=== PATIENT | male | born 1940 | race Caucasian/White ===

== ENCOUNTER 2018-04-09 17:45 | Inpatient (IN) | payer MEDICARE ==
[2018-04-09] MEDS ORDERED: SODIUM CHLORIDE 0.9% 1,000 ML IV STA (17:52)
--- NOTE | 2018-04-09 19:46 | ED ---
Altered Mental Status HPI - General Chief Complaint: Altered Mental Status Stated Complaint: Weakness, altered mental status Time Seen by Provider: 04/09/18 17:52 Source: patient, RN/MD, EMS, RN notes reviewed Mode of arrival: EMS Limitations: altered mental status - History of Present Illness Initial Comments: This is a 76-year-old male was transferred here from [facility] for further evaluation. He was brought by EMS to that facility earlier today after being found sitting in a chair over his left previous stay by a neighbor. Prior to that he been found on the floor and helped out of the chair. He was incontinent of urine. He was brought into the emergency department at [facility] found have atrial fibrillation with a rapid ventricular response dehydration evidence of pneumonia with elevated lactic acid. Also rhabdomyolysis some mild troponin elevation. Patient himself complains no chest pain is this time he has had a slight cough. He was brought in by EMS was given IV fluids. He does appear to be more responsive. MD Complaint: altered mental status, other - Related Data Home Medications Medication Instructions Recorded Confirmed Atorvastatin [Lipitor] 40 mg PO DAILY 02/06/17 04/09/18 metFORMIN HCL [Glucophage] 500 mg PO BID 02/06/17 02/06/17 Allergies Allergy/AdvReac Type Severity Reaction Status Date / Time No Known Allergies Allergy Verified 04/09/18 17:57 Review of Systems ROS Statement: Those systems with pertinent positive or pertinent negative responses have been documented in the HPI. ROS Other: All systems not noted in ROS Statement are negative. Past Medical History Past Medical History: Diabetes Mellitus, Hypertension History of Any Multi-Drug Resistant Organisms: None Reported Past Surgical History: No Surgical Hx Reported Past Psychological History: No Psychological Hx Reported Smoking Status: Never smoker Past Alcohol Use History: None Reported Past Drug Use History: None Reported General Exam - General Exam Comments Initial Comments: Is a well-developed well-nourished awake alert though somewhat mildly confused male Limitations: altered mental status General appearance: alert Head exam: Present: atraumatic, normocephalic, normal inspection Eye exam: Present: normal appearance, PERRL, EOMI. Absent: scleral icterus, conjunctival injection, periorbital swelling ENT exam: Present: mucous membranes dry Neck exam: Present: normal inspection. Absent: tenderness, meningismus, lymphadenopathy Respiratory exam: Present: normal lung sounds bilaterally. Absent: respiratory distress, wheezes, rales, rhonchi, stridor Cardiovascular Exam: Present: regular rate, normal rhythm, normal heart sounds. Absent: systolic murmur, diastolic murmur, rubs, gallop, clicks GI/Abdominal exam: Present: soft, normal bowel sounds. Absent: distended, tenderness, guarding, rebound, rigid Extremities exam: Present: normal inspection, full ROM, normal capillary refill. Absent: tenderness, pedal edema, joint swelling, calf tenderness Back exam: Present: normal inspection Neurological exam: Present: alert, altered, CN II-XII intact. Absent: motor sensory deficit Psychiatric exam: Present: anxious Skin exam: Present: warm, dry, intact, normal color. Absent: rash Course Vital Signs 04/09/18 04/09/18 04/09/18 17:52 18:00 18:30 Temperature 100.6 F H Pulse Rate 118 H 122 H 110 H Respiratory 20 18 19 Rate Blood Pressure 92/58 92/58 88/56 O2 Sat by Pulse 95 96 95 Oximetry Medical Decision Making - Medical Decision Making Patient will be admitted for inpatient treatment of multiple issues including pneumonia dehydration rhabdomyolysis fever rapid atrial fibrillation renal insufficiency. I did discuss the case with Dr. Perez - Radiology Data Radiology results: report reviewed (I did review the imaging and report evidence of a infiltrate as noted), image reviewed Disposition Clinical Impression: Pneumonia, Delirium due to general medical condition, Renal insufficiency, Febrile illness, acute, Rapid atrial fibrillation, Rhabdomyolysis, Lactic acidosis Disposition: ADMITTED IP TO THIS HOSP Condition: Serious Referrals: [facility],Clinic [Primary Care Provider] - 1-2 days
[2018-04-09] MEDS ORDERED: PNEUMONIA PROTOCOL UTILIZED 1 EACH MISC PO PRN (19:48)
[2018-04-09] MEDS ORDERED: IPRATROPIUM-ALBUTEROL 3 ML NEB INHALATION SCH (20:00)
[2018-04-09] MEDS: SODIUM CHLORIDE 0.9% 1,000 ML IV SCH (20:22)
[2018-04-09] MEDS ORDERED: IPRATROPIUM-ALBUTEROL 3 ML NEB INHALATION PRN (20:50)
[2018-04-09] MEDS ORDERED: LEVOFLOXACIN 750 MG TAB PO SCH (21:00)
[2018-04-09 21:01] LABS: Glucose,Whole Blood 154 mg/dL (75-99)
[2018-04-09] MEDS ORDERED: LORazepam 2 MG/ML INJ IV PRN ×4 (23:21)
[2018-04-09] MEDS ORDERED: THIAMINE 100 MG/ML 2 ML VIAL IM STA (23:21)
[2018-04-09] MEDS ORDERED: HYDROmorphone 0.5 MG/0.5 ML SYRINGE IVP PRN (23:23)
[2018-04-09] MEDS: THIAMINE 100 MG TAB PO SCH (23:27)
[2018-04-09] MEDS: INSULIN ASPART 100 UNIT/ML 1 ML 10 ML VIAL SQ SCH (23:35)
--- NOTE | 2018-04-09 23:37 | HP ---
HISTORY AND PHYSICAL DATE OF SERVICE: 04/09/2018 CHIEF COMPLAINT: Change in mental status, pneumonia. HISTORY OF PRESENT ILLNESS: This 77-year-old gentleman with a past history of multiple medical problems including diabetes and hypertension, being followed by Dr. Carmona in the [facility], presented to [facility] in a confused situation. The patient's neighbor found him on the floor in urine and the patient had shortness of breath and cough also. The patient was found to have atrial fibrillation with fast ventricular rate at [facility] with pneumonia as well as elevated lactic acid also as well as rhabdomyolysis. Currently the patient is admitted for further evaluation. The patient is confused, unable to give coherent history. Most of the information was taken from my discussion with staff and review of the chart at this time. PAST MEDICAL HISTORY: History of diabetes mellitus and hypertension. MEDICATIONS: Home medications list shows Lipitor 40 mg daily. ALLERGIES: None. FAMILY HISTORY, SOCIAL HISTORY, REVIEW OF SYSTEMS: Could not be taken because of the patient's confusion. PHYSICAL EXAM: Pulse is 102, blood pressure 106/65, respirations 17, temperature 98.2, pulse ox 94% on room air. HEENT: Conjunctivae normal. NECK: No JVD. CARDIOVASCULAR: S1 and S2 normal. LUNGS: Breath sounds diminished in the bases. Few scattered rhonchi and crackles. ABDOMEN: Soft. No mass. LEGS: No edema, no cyanosis. NERVOUS SYSTEM: Higher functions as mentioned. Moves all limbs equally. LYMPHATICS: No lymph nodes palpable in the neck, axillae or groin. SKIN: No rash. JOINTS: No active deformity or arthropathy. LABS: At this time reviewed. Glucose 154. ASSESSMENT: 1. Change in mental status, possible acute pneumonia with sepsis. 2. Metabolic encephalopathy secondary to sepsis. 3. Atrial fibrillation with fast ventricular rate, present on admission. 4. Elevated lactic acid. 5. Elevated troponin. 6. History of diabetes type 2. 7. Hypertension. RECOMMENDATIONS AND DISCUSSION: In this 77-year-old gentleman who presented with multiple complex medical problems, we will monitor the patient closely, continue the current management and symptomatic treatment. Initiate broad-spectrum IV antibiotics. Will consult Dr. Santizo. Bronchodilators, empiric antibiotics. Guarded prognosis because of multiple complex medical problems. MMODL / IJN: [id number] /
[2018-04-09 23:56] LABS: Basophils # (A) 0.1 k/uL (0-0.2); Basophils % (A) 1 %; Eosinophils # (A) 0.1 k/uL (0-0.7); Eosinophils % (A) 1 %; Lymphocytes # (A) 0.7 k/uL (1.0-4.8); Lymphocytes % (A) 8 %; MCH 29.4 pg (25.0-35.0); MCHC 30.9 g/dL (31.0-37.0); MCV 95.4 fL (80.0-100.0); Mean Platelet Volume 7.6; Monocytes # (A) 0.7 k/uL (0-1.0); Monocytes % (A) 7 %; Neutrophils # (A) 7.4 k/uL (1.3-7.7); Neutrophils % (A) 81 %; Platelet Count 190 k/uL (150-450); RBC 4.41 m/uL (4.30-5.90); RDW 14.3 % (11.5-15.5); WBC 9.1 k/uL (3.8-10.6)
[2018-04-09 23:58] LABS: INR 1.1 (<1.2); Prothrombin Time 11.9 sec (9.0-12.0)
[2018-04-10 00:01] LABS: Appearance,Urine Clear (Clear); Bilirubin,Urine Negative (Negative); Blood,Urine Moderate (Negative); Color,Urine Yellow; Glucose,Urine (UA) Trace (Negative); Ketones,Urine Negative (Negative); Leukocyte Esterase,Urine Negative (Negative); Mucus,Urine Rare /hpf; Nitrite,Urine Negative (Negative); PH, Urine 5.5 (5.0-8.0); Protein,Urine 1+ (Negative); RBC,Urine 89 /hpf (0-5); Specific Gravity,Urine 1.018 (1.001-1.035); Urobilinogen,Urine <2.0 mg/dL (<2.0); WBC,Urine 8 /hpf (0-5)
[2018-04-10 00:22] LABS: Amphetamine Screen,Urine Not Detected (NotDetected); Barbiturate Screen,Urine Not Detected (NotDetected); Benzodiazepines Screen,Urine Not Detected (NotDetected); Cocaine Screen,Urine Not Detected (NotDetected); Methadone Screen, Urine Not Detected (NotDetected); Opiate Screen,Urine Not Detected (NotDetected); Oxycodone Screen, Urine Not Detected (NotDetected); Phencyclidine Screen,Urine Not Detected (NotDetected); Tricyclic Antidepressant,Urine Not Detected (NotDetected); Urn Cannabinoid Scrn Not Detected (NotDetected)
--- NOTE | 2018-04-10 00:34 | XR ---
EXAMINATION TYPE: XR chest 1V portable DATE OF EXAM: 04/10/2018 COMPARISON: 04/09/2018 HISTORY: Pneumonia TECHNIQUE: Single frontal view of the chest is obtained. FINDINGS: There are mild infiltrates in the lower lung aguilar. There is no heart failure. Heart size is normal. There is no pleural effusion. IMPRESSION: Left lower lobe pneumonia unchanged compared to yesterday. There is new right lower lobe pneumonia.
--- NOTE | 2018-04-10 00:42 | CT ---
EXAMINATION TYPE: CT brain wo con DATE OF EXAM: 04/10/2018 COMPARISON: Yesterday HISTORY: AMS CT DLP: 1176.4 mGycm Automated exposure control for dose reduction was used. FINDINGS: There is cerebral cortical atrophy. There is no mass effect nor midline shift. There is no sign of in tracranial hemorrhage. The calvarium is intact. There is no evidence of a fracture. There is prominen ce of the ventricles. IMPRESSION: CEREBRAL ATROPHY AND HYDROCEPHALUS. NO ACUTE INTRACRANIAL ABNORMALITY. NO CHANGE COMPARED TO YESTERDA Y.
[2018-04-10 00:43] LABS: ALT 19 U/L (21-72); AST 42 U/L (17-59); Albumin 3.1 g/dL (3.5-5.0); Alcohol <10 mg/dL; Alkaline Phosphatase 75 U/L (38-126); Anion Gap 11 mmol/L; Blood Urea Nitrogen 35 mg/dL (9-20); Calcium 8.4 mg/dL (8.4-10.2); Carbon Dioxide 18 mmol/L (22-30); Chloride 110 mmol/L (98-107); Glucose 109 mg/dL (74-99); Potassium 4.3 mmol/L (3.5-5.1); Sodium 139 mmol/L (137-145); Total Bilirubin 1.1 mg/dL (0.2-1.3); Total Protein 6.1 g/dL (6.3-8.2)
[2018-04-10] MEDS: ACETAMINOPHEN TAB 325 MG TAB PO PRN (03:24)
[2018-04-10] MEDS: SODIUM CHLORIDE 0.9% 1,000 ML IV SCH ×4 (05:51→23:00)
[2018-04-10 06:23] LABS: Glucose,Whole Blood 109 mg/dL (75-99)
[2018-04-10] MEDS: INSULIN ASPART 100 UNIT/ML 1 ML 10 ML VIAL SQ SCH ×4 (06:27→21:03)
[2018-04-10] MEDS: PANTOPRAZOLE 40 MG TABLET PO SCH (06:28)
[2018-04-10] MEDS: metFORMIN 500 MG TAB PO SCH ×2 (06:28→16:43)
[2018-04-10 07:32] LABS: Basophils % (A) 0 %; Eosinophils % (A) 1 %; HCT 37.3 % (39.0-53.0); Lymphocytes # (A) 0.7 k/uL (1.0-4.8); Lymphocytes % (A) 9 %; MCH 29.8 pg (25.0-35.0); MCHC 32.1 g/dL (31.0-37.0); Monocytes # (A) 0.5 k/uL (0-1.0); Monocytes % (A) 7 %; Neutrophils # (A) 6.3 k/uL (1.3-7.7); Neutrophils % (A) 82 %; Platelet Count 198 k/uL (150-450); RBC 4.01 m/uL (4.30-5.90); RDW 14.3 % (11.5-15.5); WBC 7.7 k/uL (3.8-10.6)
[2018-04-10 08:01] LABS: Albumin 2.5 g/dL (3.5-5.0); Potassium 3.8 mmol/L (3.5-5.1); Total Bilirubin 0.8 mg/dL (0.2-1.3)
[2018-04-10] MEDS: SYMBICORT 160-4.5 MCG INHALER INHALATION SCH ×2 (08:34→19:17)
[2018-04-10] MEDS: IPRATROPIUM-ALBUTEROL 3 ML NEB INHALATION SCH ×3 (08:34→19:16)
[2018-04-10] MEDS ORDERED: HEPARIN SODIUM,PORCINE 5,000 UNIT/ML 1 ML VIAL SQ SCH (09:00)
[2018-04-10] MEDS ORDERED: ATORVASTATIN 40 MG TAB PO SCH (09:00)
[2018-04-10] MEDS: MULTIVITAMINS, THERA 1 EACH TAB PO SCH (09:52)
[2018-04-10] MEDS: THIAMINE 100 MG TAB PO SCH ×2 (09:52→16:43)
[2018-04-10] MEDS: NICOTINE 14MG/24HR PATCH TRANSDERM SCH (09:52)
[2018-04-10 10:54] LABS: Glucose,Whole Blood 129 mg/dL (75-99)
--- NOTE | 2018-04-10 13:05 | P.CNPUL ---
History of Present Illness Consult date: 04/10/18 Requesting physician: Pantera Perez Reason for consult: abnormal CXR/CT (Bibasilar pneumonia) Chief complaint: Altered mental status History of present illness: This is a pleasant 77-year-old gentleman who follows with the [facility] for his primary care needs. He has a history of diabetes mellitus and hyperlipidemia. He was brought here to the emergency room from [facility] after being evaluated for altered mental status and being found on the floor incontinent of urine by a neighbor. Workup there revealed atrial fibrillation with a rapid ventricular response, dehydration, basilar pneumonia, rhabdomyolysis and mild troponin elevation. Here in the emergency room asked x-ray did reveal bibasilar infiltrates. Computed tomography scan of the brain revealed cerebral atrophy and hydrocephalus but no acute intracranial abnormalities. Results revealed a white count of 9.1. Hemoglobin 13.0. Bicarb 18. Creatinine 1.55. Troponin 0.064, 0.085. Serum alcohol less than 10. Urine drug screen negative. Influenza screen negative. Urinalysis with moderate blood and WBCs. He is seen today in consultation on the selective care unit. He is currently awake and alert in no acute distress. He is somewhat confused as to why he was transferred here. He denies any chest pain currently. He denies any worsening shortness of breath. He does have a loose nonproductive cough. He is maintaining good O2 saturations in the mid 90s on room air. He's been afebrile. Hemodynamically stable. Follow-up labs reveal a WBC of 7.7. Hemoglobin 12.0. Creatinine 1.47. CK 409. Review of Systems Constitutional: Reports fatigue, Reports poor appetite, Reports weakness Eyes: denies blurred vision, denies decreased vision Ears: bilateral: decreased hearing Ears, nose, mouth and throat: Denies headache, Denies sore throat Cardiovascular: Reports dyspnea on exertion Respiratory: Reports congestion, Reports cough, Reports dyspnea Gastrointestinal: Denies abdominal pain, Denies diarrhea, Denies nausea, Denies vomiting Genitourinary: Reports as per HPI Musculoskeletal: Denies myalgias Integumentary: Reports depigmentation Neurological: Reports change in mentation Psychiatric: Reports anxiety Endocrine: Denies fatigue, Denies weight change Hematologic/Lymphatic: Reports as per HPI Allergic/Immunologic: Reports as per HPI Past Medical History Past Medical History: Diabetes Mellitus, Hypertension History of Any Multi-Drug Resistant Organisms: None Reported Past Surgical History: No Surgical Hx Reported Past Psychological History: No Psychological Hx Reported Smoking Status: Never smoker Past Alcohol Use History: None Reported Past Drug Use History: None Reported - Past Family History Father Family Medical History: Musculoskeletal Disorder Additional Family Medical History / Comment(s): MS Medications and Allergies Home Medications Medication Instructions Recorded Confirmed Type Atorvastatin [Lipitor] 40 mg PO DAILY 02/06/17 04/09/18 History Allergies Allergy/AdvReac Type Severity Reaction Status Date / Time No Known Allergies Allergy Verified 04/09/18 21:36 Physical Exam Vitals: Vital Signs Temp Pulse Pulse Resp BP BP Pulse Ox 04/10/18 12:29 82 04/10/18 12:13 82 04/10/18 12:00 98.4 F 90 17 116/58 95 04/10/18 08:45 86 04/10/18 08:37 88 04/10/18 08:00 98.8 F 62 19 99/42 95 04/10/18 04:00 102 F H 76 19 117/54 92 L 04/10/18 00:30 94 L 04/10/18 00:00 98 F 101 H 18 128/66 94 L 04/09/18 20:30 99.0 F 109/66 04/09/18 20:09 98.8 F 61 18 128/66 94 L 04/09/18 20:00 102 H 17 106/55 98 04/09/18 19:30 121 H 15 106/60 04/09/18 19:00 115 H 20 92/63 96 04/09/18 18:30 110 H 19 88/56 95 04/09/18 18:00 122 H 18 92/58 96 04/09/18 17:52 100.6 F H 118 H 20 92/58 95 Intake and Output 04/09/18 04/10/18 04/10/18 22:59 06:59 14:59 Intake Total 120 Output Total 450 800 600 Balance -450 -800 -480 Intake: IV 20 Invasive Line 3 20 Oral 100 Output: Urine 450 800 600 Uretheral (Patrick) 400 Other: Voiding Method Indwelling Catheter Weight 84.822 kg 82.5 kg - Constitutional General appearance: average body habitus, disheveled, no acute distress - EENT Eyes: EOMI, PERRLA ENT: hard of hearing Ears: bilateral: normal - Neck Neck: normal ROM Carotids: bilateral: upstroke normal Thyroid: bilateral: normal size - Respiratory Respiratory: bilateral: diminished, rhonchi - Cardiovascular Rhythm: irregularly irregular Heart sounds: normal: S1, S2 - Gastrointestinal General gastrointestinal: normal bowel sounds - Integumentary Integumentary: normal turgor - Neurologic Neurologic: CNII-XII intact - Musculoskeletal Musculoskeletal: generalized weakness - Psychiatric Psychiatric: A&O x's 3, appropriate affect, intact judgment & insight Results - Laboratory Findings CBC and BMP: 04/10/18 06:42 04/10/18 06:42 PT/INR, D-dimer PT 11.9 sec (9.0-12.0) 04/09/18 23:30 INR 1.1 (<1.2) 04/09/18 23:30 Abnormal lab findings: Abnormal Labs 04/09/18 04/09/18 04/09/18 21:00 23:22 23:22 RBC Hgb Hct MCHC 30.9 L Lymphocytes # 0.7 L Chloride 110 H Carbon Dioxide 18 L BUN 35 H Creatinine 1.55 H Glucose 109 H POC Glucose (mg/dL) 154 H Calcium ALT 19 L Creatine Kinase Troponin I Total Protein 6.1 L Albumin 3.1 L Urine Protein Urine Glucose (UA) Urine Blood Urine RBC Urine WBC Urine Mucus 04/09/18 04/09/18 04/10/18 23:22 23:34 06:21 RBC Hgb Hct MCHC Lymphocytes # Chloride Carbon Dioxide BUN Creatinine Glucose POC Glucose (mg/dL) 109 H Calcium ALT Creatine Kinase Troponin I 0.064 H* Total Protein Albumin Urine Protein 1+ H Urine Glucose (UA) Trace H Urine Blood Moderate H Urine RBC 89 H Urine WBC 8 H Urine Mucus Rare H 04/10/18 04/10/18 04/10/18 06:41 06:42 06:42 RBC 4.01 L Hgb 12.0 L Hct 37.3 L MCHC Lymphocytes # 0.7 L Chloride 111 H Carbon Dioxide 21 L BUN 29 H Creatinine 1.47 H Glucose 108 H POC Glucose (mg/dL) Calcium 8.0 L ALT Creatine Kinase 409 H Troponin I 0.085 H* Total Protein 5.0 L Albumin 2.5 L Urine Protein Urine Glucose (UA) Urine Blood Urine RBC Urine WBC Urine Mucus 04/10/18 10:53 RBC Hgb Hct MCHC Lymphocytes # Chloride Carbon Dioxide BUN Creatinine Glucose POC Glucose (mg/dL) 129 H Calcium ALT Creatine Kinase Troponin I Total Protein Albumin Urine Protein Urine Glucose (UA) Urine Blood Urine RBC Urine WBC Urine Mucus - Diagnostic Findings Chest x-ray: image reviewed Assessment and Plan Assessment: Impression: #1 Altered mental status of unclear etiology found on floor by neighbors incontinent of urine and possible metabolic encephalopathy. #2 Atrial fibrillation with a rapid ventricular response. #3 Bibasilar pneumonia, suspect aspiration. #4 Febrile illness secondary to above. #5 Urinary tract infection, culture pending. #6 Diabetes mellitus. #7 Hyperlipidemia. #8 Rhabdomyolysis. #9 Elevated troponins. #10 Acute renal failure Plan: The patient was seen and evaluated by Dr. Santioz. Chest x-ray and labs were reviewed. He is currently on ceftriaxone. We'll add azithromycin. Initiated on DuoNeb inhalations, Symbicort. We will try to obtain more information as the patient is a poor historian. We'll continue to follow and make further recommendations based on his clinical status. I, the cosigning physician, performed a history & physical examination of the patient. Lungs sounds bilateral scattered rhonchi. Maintaining good O2 saturations in the 90s on room air. I discussed the assessment and plan of care with my nurse practitioner, Jazz Phoenix. I attest to the above note as dictated by her. Time with Patient: Greater than 30
[2018-04-10] MEDS ORDERED: AZITHROMYCIN 500 MG TAB PO SCH (13:15)
[2018-04-10] MEDS ORDERED: LEVOFLOXACIN 750 MG TAB PO SCH (15:00)
[2018-04-10] MEDS ORDERED: MINERAL OIL-WHITE PETROLATUM 120 GM JAR TOPICAL PRN (16:14)
[2018-04-10] MEDS ORDERED: HEPARIN SODIUM,PORCINE 5,000 UNIT/ML 1 ML VIAL IV ONE (16:16)
[2018-04-10] MEDS ORDERED: HEPARIN SODIUM,PORCINE 5,000 UNIT/ML 1 ML VIAL IV PRN (16:16)
[2018-04-10] MEDS ORDERED: HEPARIN SOD,PORK IN 0.45% NACL 25,000 UNIT in 0.45% NACL 1 250ML.BAG IV SCH (16:30)
[2018-04-10 16:50] LABS: Glucose,Whole Blood 80 mg/dL (75-99)
[2018-04-10 16:53] LABS: Basophils % (A) 0 %; Eosinophils # (A) 0.1 k/uL (0-0.7); Eosinophils % (A) 1 %; HCT 40.2 % (39.0-53.0); HGB 12.7 gm/dL (13.0-17.5); Lymphocytes # (A) 0.7 k/uL (1.0-4.8); Lymphocytes % (A) 10 %; MCH 29.8 pg (25.0-35.0); MCHC 31.7 g/dL (31.0-37.0); MCV 94.1 fL (80.0-100.0); Mean Platelet Volume 8.1; Monocytes # (A) 0.5 k/uL (0-1.0); Monocytes % (A) 7 %; Neutrophils # (A) 5.5 k/uL (1.3-7.7); Neutrophils % (A) 79 %; Platelet Count 170 k/uL (150-450); RBC 4.28 m/uL (4.30-5.90); RDW 14.3 % (11.5-15.5); WBC 6.9 k/uL (3.8-10.6)
[2018-04-10 17:01] LABS: Partial Thromboplastin Time 25.6 sec (22.0-30.0); Prothrombin Time 10.7 sec (9.0-12.0)
--- NOTE | 2018-04-10 17:47 | PN ---
PROGRESS NOTE DATE OF SERVICE: 04/10/2018 This 77-year-old gentleman who was admitted with change in mental status, possible bibasilar pneumonia also had significant dry skin also. The patient being closely monitored. Patient has significant dementia. The CT scan of the brain shows significant shrinkage of the brain with some increased ventricular fluid also. The patient is being closely monitored at this time. The patient apparently lives by himself and the nearest nieces is in [place] with whom the staff is in contact. The patient also had a atrial fibrillation with fast ventricular rate. New onset atrial fibrillation, and the patient being closely monitored. Patient is closely monitored at this time. PAST MEDICAL HISTORY: Reviewed. REVIEW OF SYSTEMS: CARDIOVASCULAR SYSTEM: No angina or palpitations. Respiration: As mentioned earlier. GI as mentioned earlier. no dysuria. Central nervous system: No numbness or weakness. CURRENT MEDICATIONS: Reviewed include: 1. Tylenol 650 q.4h. 2. DuoNeb q.i.d. and p.r.n. 3. Zithromax 500 mg daily. 4. Symbicort 160/4.5 two puffs b.i.d. 5. Rocephin 1 g daily. 6. Heparin. 7. Dilaudid. 8. NovoLog. 9. Ativan. 10.Glucophage. 11.Multivitamins. 12.Habitrol 14 daily. 13.Protonix. PHYSICAL EXAM: Patient is alert, oriented x2. Pulse is 98, blood pressure 116/50, respirations 17, temperature 98.4, pulse ox 94% on room air. HEENT: Conjunctivae normal. NECK: No jugular venous distention. No carotid bruit. CARDIOVASCULAR: S1, S2 muffled. Respiratory: Breath sounds diminished in the bases. A few scattered rhonchi and crackles. ABDOMEN: Soft, nontender. Legs no edema. Nervous system: Diffusely weak. Skin: Significant diffuse dry skin. The patient is picking also. LABS: WBC 7.2, hemoglobin is 12, sodium 139 and creatinine is 1.47. Troponin 0.085. ASSESSMENT: 1. Change in mental status, possible acute bibasilar pneumonia possibly gram-negative and sepsis present on admission. 2. Change in mental status, metabolic encephalopathy, acute. 3. History of dementia. 4. Atrial fibrillation with fast ventricular rate present on admission. 5. Elevated lactic acid. 6. Elevated pro troponin around 0.085, indeterminate. 7. Diabetes mellitus type 2. 8. Hypertension. 9. NO CODE, NO CPR, NO VENT. 10.Chronic kidney stage 3. 11.Gait dysfunction. 12.Extensive dry skin of the lower extremities. RECOMMENDATIONS AND DISCUSSION: In this 77-year-old gentleman who presented with multiple complex medical issues, we will monitor the patient closely, continue the current medications, continue broad- spectrum IV antibiotics. Continue bronchodilators. Closely follow with Pulmonary. I would also recommend Cardiology evaluation. A 2D echo with Doppler. Otherwise diet may be advanced if tolerated and continue to monitor. Bronchodilators. Prognosis guarded. Further recommendations to follow. See orders for details. Local treatment for the dry skin. The patient was found alone by the EMS. Also recommend PT/OT evaluation. Production Planning Supervisor for possible ECF rehab also. Further recommendations to follow. CELINA / TRACY: [id number] /
[2018-04-10] MEDS: AZITHROMYCIN 500 MG in SODIUM CHLORIDE 0.9% 250 ML IVPB SCH (18:44)
[2018-04-10 20:48] LABS: Glucose,Whole Blood 99 mg/dL (75-99)
[2018-04-11 05:43] LABS: Basophils % (A) 0 %; Eosinophils # (A) 0.1 k/uL (0-0.7); Eosinophils % (A) 2 %; HGB 11.9 gm/dL (13.0-17.5); Lymphocytes # (A) 0.8 k/uL (1.0-4.8); Lymphocytes % (A) 14 %; MCH 29.5 pg (25.0-35.0); MCHC 31.2 g/dL (31.0-37.0); MCV 94.6 fL (80.0-100.0); Mean Platelet Volume 7.8; Monocytes # (A) 0.4 k/uL (0-1.0); Monocytes % (A) 7 %; Neutrophils # (A) 4.3 k/uL (1.3-7.7); Neutrophils % (A) 74 %; Platelet Count 183 k/uL (150-450); RBC 4.02 m/uL (4.30-5.90); RDW 14.4 % (11.5-15.5); WBC 5.8 k/uL (3.8-10.6)
[2018-04-11 05:52] LABS: Albumin 2.3 g/dL (3.5-5.0); Potassium 3.8 mmol/L (3.5-5.1); Total Bilirubin 0.5 mg/dL (0.2-1.3); Total Protein 4.8 g/dL (6.3-8.2)
[2018-04-11] MEDS: SODIUM CHLORIDE 0.9% 1,000 ML IV SCH ×3 (06:00→19:47)
[2018-04-11 06:05] LABS: Glucose,Whole Blood 86 mg/dL (75-99)
[2018-04-11] MEDS: INSULIN ASPART 100 UNIT/ML 1 ML 10 ML VIAL SQ SCH ×4 (06:05→20:40)
[2018-04-11] MEDS: metFORMIN 500 MG TAB PO SCH ×2 (06:17→19:45)
[2018-04-11] MEDS: PANTOPRAZOLE 40 MG TABLET PO SCH (06:17)
[2018-04-11] MEDS: SILVER sulfADIAZINE Cream 400 GM 1 APPLIC APPLIC TOPICAL SCH (07:49)
[2018-04-11] MEDS: IPRATROPIUM-ALBUTEROL 3 ML NEB INHALATION SCH ×3 (08:04→20:32)
[2018-04-11] MEDS: SYMBICORT 160-4.5 MCG INHALER INHALATION SCH ×2 (08:04→20:32)
[2018-04-11] MEDS: NICOTINE 14MG/24HR PATCH TRANSDERM SCH (10:41)
[2018-04-11] MEDS: THIAMINE 100 MG TAB PO SCH ×2 (10:41→19:45)
[2018-04-11] MEDS: AZITHROMYCIN 500 MG in SODIUM CHLORIDE 0.9% 250 ML IVPB SCH (10:41)
[2018-04-11] MEDS: MULTIVITAMINS, THERA 1 EACH TAB PO SCH (10:41)
[2018-04-11 10:51] LABS: Glucose,Whole Blood 82 mg/dL (75-99)
--- NOTE | 2018-04-11 16:01 | P.PN ---
Subjective Progress Note Date: 04/11/18 Principal diagnosis: Altered mental status, metabolic encephalopathy, atrial fibrillation with RVR, aspiration pneumonia. This is a pleasant 77-year-old gentleman who follows with the [facility] for his primary care needs. He has a history of diabetes mellitus and hyperlipidemia. He was brought here to the emergency room from [facility] after being evaluated for altered mental status and being found on the floor incontinent of urine by a neighbor. Workup there revealed atrial fibrillation with a rapid ventricular response, dehydration, basilar pneumonia, rhabdomyolysis and mild troponin elevation. Here in the emergency room asked x-ray did reveal bibasilar infiltrates. Computed tomography scan of the brain revealed cerebral atrophy and hydrocephalus but no acute intracranial abnormalities. Results revealed a white count of 9.1. Hemoglobin 13.0. Bicarb 18. Creatinine 1.55. Troponin 0.064, 0.085. Serum alcohol less than 10. Urine drug screen negative. Influenza screen negative. Urinalysis with moderate blood and WBCs. He is seen today in consultation on the selective care unit. He is currently awake and alert in no acute distress. He is somewhat confused as to why he was transferred here. He denies any chest pain currently. He denies any worsening shortness of breath. He does have a loose nonproductive cough. He is maintaining good O2 saturations in the mid 90s on room air. He's been afebrile. Hemodynamically stable. Follow-up labs reveal a WBC of 7.7. Hemoglobin 12.0. Creatinine 1.47. CK 409. Reevaluated today on 04/11/2018, patient remains confused, denies any complaints. Denies any headaches no blurred vision no dizziness. Denies any cough no wheezing no shortness of breath, no chest pain. No nausea no vomiting no abdominal pain. Patient tells me that he has no idea why he is in the hospital in the first place, and he should be discharged home. Labs noted a normal CBC. Normal electrolytes. Creatinine is 1.39. Admission creatinine was 1.55 Objective - Vital Signs Vital signs: Vital Signs Temp 98.4 F 04/11/18 07:41 Pulse 84 04/11/18 12:53 Resp 18 04/11/18 07:41 BP 142/74 04/11/18 07:41 Pulse Ox 94 L 04/11/18 07:41 Intake & Output 04/10/18 04/11/18 04/11/18 18:59 06:59 18:59 Intake Total 130 Output Total 600 1200 475 Balance -470 -1200 -475 Weight 84 kg Intake: IV 30 Invasive Line 3 30 Oral 100 Output: Urine 600 1200 475 Other: Voiding Method Indwelling Catheter Indwelling Catheter Indwelling Catheter - Exam Physical Exam: Revealed a 77-year-old white male in no distress. On room air. Head: Atraumatic normocephalic. HEENT:[Neck is supple.] [No neck masses.] [No thyromegaly.] [No JVD.] PERRLA, EOMI, dry mucous membranes. Chest: [Crackles at the bases, no rhonchi no wheezes. Diminished breath sound bilaterally. No chest wall tenderness. Symmetrical chest expansion..] Cardiac Exam: [Irregular irregular rhythm, normal S1 and S2, 2/6 systolic murmur throughout the precordium..] Abdomen: [Soft, nontender, no megaly, no rebound, no guarding, normal bowel sounds.] Extremities: [No clubbing, no edema, no cyanosis.] Neurological Exam: [Slightly confused otherwise No focal neurologic deficit. Skin: No rashes. Lymphatics: No lymphadenopathy.] - Labs CBC & Chem 7: 04/11/18 05:23 04/11/18 05:23 Labs: Abnormal Lab Results - Last 24 Hours (Table) 04/10/18 04/10/18 04/11/18 Range/Units 16:26 22:31 05:23 RBC 4.28 L 4.02 L (4.30-5.90) m/uL Hgb 12.7 L 11.9 L (13.0-17.5) gm/dL Hct 38.0 L (39.0-53.0) % Lymphocytes # 0.7 L 0.8 L (1.0-4.8) k/uL APTT 59.3 H (22.0-30.0) sec Chloride (98-107) mmol/L Carbon Dioxide (22-30) mmol/L BUN (9-20) mg/dL Creatinine (0.66-1.25) mg/dL Calcium (8.4-10.2) mg/dL Creatine Kinase (55-170) U/L Total Protein (6.3-8.2) g/dL Albumin (3.5-5.0) g/dL 04/11/18 04/11/18 Range/Units 05:23 05:23 RBC (4.30-5.90) m/uL Hgb (13.0-17.5) gm/dL Hct (39.0-53.0) % Lymphocytes # (1.0-4.8) k/uL APTT 54.1 H (22.0-30.0) sec Chloride 114 H (98-107) mmol/L Carbon Dioxide 19 L (22-30) mmol/L BUN 21 H (9-20) mg/dL Creatinine 1.39 H (0.66-1.25) mg/dL Calcium 8.0 L (8.4-10.2) mg/dL Creatine Kinase 427 H (55-170) U/L Total Protein 4.8 L (6.3-8.2) g/dL Albumin 2.3 L (3.5-5.0) g/dL Microbiology - Last 24 Hours (Table) 04/09/18 23:34 Urine Culture - Final Urine,Catheterized 04/09/18 19:51 Blood Culture - Preliminary Blood No Growth after 24 hours Assessment and Plan Assessment: #1 Altered mental status of unclear etiology found on floor by neighbors incontinent of urine and possible metabolic encephalopathy. #2 Atrial fibrillation with a rapid ventricular response. #3 Bibasilar pneumonia, possible aspiration hence we'll change antibiotics to Zosyn. #4 Febrile illness secondary to above. #5 Urinary tract infection, culture pending. #6 Diabetes mellitus. #7 Hyperlipidemia. #8 Rhabdomyolysis. #9 Elevated troponins. #10 Acute renal failure Recommendation: Continue present treatment plan including antibiotics, bronchodilators, follow-up and repeat chest x-ray in a.m. Continue heparin as per protocol for his atrial fibrillation, continue to monitor and address her elevated blood sugars, continue nicotine patch, continue IV fluids. Continue GI prophylaxis. Continue lorazepam as per protocol for alcohol withdrawal. We' ll continue to follow. Time with Patient: Less than 30
[2018-04-11 17:01] LABS: Glucose,Whole Blood 125 mg/dL (75-99)
--- NOTE | 2018-04-11 17:16 | ECHOF ---
Referral Reason:+ trops MEASUREMENTS -------- HEIGHT: 185.4 cm WEIGHT: 82.1 kg BP: 116/58 RVIDd: 3.4 cm (< 3.3) IVSd: 1.6 cm (0.6 - 1.1) LVIDd: 4.1 cm (3.9 - 5.3) LVPWd: 1.5 cm (0.6 - 1.1) IVSs: 1.9 cm LVIDs: 3.6 cm LVPWs: 1.7 cm LA Diam: 3.7 cm (2.7 - 3.8) LAESV Index (A-L): 35.52 ml/m Ao Diam: 4.4 cm (2.0 - 3.7) AV Cusp: 2.2 cm (1.5 - 2.6) EPSS: 1.0 cm RAP: 5.00 mmHg RVSP: 38.70 mmHg MV EF SLOPE: 96.54 mm/s (70 - 150) MV EXCURSION: 1.53 cm (> 18.000) FINDINGS -------- Atrial fibrillation. This was a technically adequate study. The left ventricular size is normal. There is moderate concentric left ventricular hypertrophy. O verall left ventricular systolic function is mildly impaired with, an EF between 45 - 50 %. Basal i nferior LV wall motion is hypokinetic. Inferiorlateral Hypokinesis The right ventricle is mildly enlarged. LA is moderately dilated 34-39 ml/m2 The right atrium is normal in size. There is mild aortic valve sclerosis. The mitral valve leaflets are mildly thickened. Mild mitral annular calcification present. Mild m itral regurgitation is present. Mild tricuspid regurgitation present. There is mild pulmonary hypertension. The right ventricular systolic pressure, as measured by Doppler, is 38.70mmHg. Trace/mild (physiologic) pulmonic regurgitation. The aortic root is dilated measuring 4.4cm. Normal inferior vena cava with normal inspiratory collapse consistent with estimated right atrial pre ssure of 5 mmHg. The inferior vena cava is mildly dilated. There is no pericardial effusion. CONCLUSIONS -------- 1. Atrial fibrillation. 2. This was a technically adequate study. 3. The left ventricular size is normal. 4. There is moderate concentric left ventricular hypertrophy. 5. Basal inferior LV wall motion is hypokinetic. 6. Inferiorlateral Hypokinesis 7. The right ventricle is mildly enlarged. 8. LA is moderately dilated 34-39 ml/m2 9. The right atrium is normal in size. 10. There is mild aortic valve sclerosis. 11. The mitral valve leaflets are mildly thickened. 12. Mild mitral annular calcification present. 13. Mild mitral regurgitation is present. 14. Mild tricuspid regurgitation present. 15. There is mild pulmonary hypertension. 16. The right ventricular systolic pressure, as measured by Doppler, is 38.70mmHg. 17. Trace/mild (physiologic) pulmonic regurgitation. 18. The aortic root is dilated measuring 4.4cm. 19. Normal inferior vena cava with normal inspiratory collapse consistent with estimated right atrial pressure of 5 mmHg. 20. The inferior vena cava is mildly dilated. 21. There is no pericardial effusion. DIE REPAIR MACHINIST: AMERICA Castro
[2018-04-11 20:36] LABS: Glucose,Whole Blood 100 mg/dL (75-99)
[2018-04-11] MEDS: PIPERACILLIN-TAZOBACTAM 3.375 GM in SODIUM CHLORIDE 0.9% 100 ML IVPB SCH (20:41)
[2018-04-11] MEDS: APIXABAN 2.5 MG TABLET PO SCH (20:54)
[2018-04-11] MEDS: METOPROLOL TARTRATE 25 MG TAB PO SCH (20:54)
[2018-04-12] MEDS: SODIUM CHLORIDE 0.9% 1,000 ML IV SCH ×4 (04:42→21:38)
[2018-04-12] MEDS: PIPERACILLIN-TAZOBACTAM 3.375 GM in SODIUM CHLORIDE 0.9% 100 ML IVPB SCH ×3 (04:42→21:37)
[2018-04-12 06:08] LABS: Glucose,Whole Blood 101 mg/dL (75-99)
[2018-04-12] MEDS: INSULIN ASPART 100 UNIT/ML 1 ML 10 ML VIAL SQ SCH ×4 (06:23→21:37)
[2018-04-12] MEDS: metFORMIN 500 MG TAB PO SCH ×2 (06:28→17:32)
[2018-04-12] MEDS: PANTOPRAZOLE 40 MG TABLET PO SCH (06:28)
[2018-04-12 06:51] LABS: Albumin 2.4 g/dL (3.5-5.0); Total Protein 4.9 g/dL (6.3-8.2)
[2018-04-12 06:52] LABS: Magnesium 1.9 mg/dL (1.6-2.3); Total Bilirubin 0.7 mg/dL (0.2-1.3)
[2018-04-12 06:52] LABS: Basophils % (A) 0 %; Eosinophils # (A) 0.2 k/uL (0-0.7); Eosinophils % (A) 3 %; HCT 38.8 % (39.0-53.0); HGB 12.1 gm/dL (13.0-17.5); Lymphocytes % (A) 14 %; MCHC 31.2 g/dL (31.0-37.0); MCV 92.9 fL (80.0-100.0); Mean Platelet Volume 7.6; Monocytes # (A) 0.4 k/uL (0-1.0); Monocytes % (A) 6 %; Neutrophils # (A) 5.2 k/uL (1.3-7.7); Neutrophils % (A) 74 %; Platelet Count 218 k/uL (150-450); RBC 4.17 m/uL (4.30-5.90); RDW 14.2 % (11.5-15.5)
[2018-04-12] MEDS: IPRATROPIUM-ALBUTEROL 3 ML NEB INHALATION SCH ×3 (06:54→20:57)
[2018-04-12] MEDS: SYMBICORT 160-4.5 MCG INHALER INHALATION SCH ×2 (06:54→20:57)
--- NOTE | 2018-04-12 08:50 | PN ---
PROGRESS NOTE DATE OF SERVICE: 04/11/2018 This 77-year-old gentleman who was admitted with change in mental status has possible acute bibasilar pneumonia and sepsis. Patient is being closely monitored at this time. The patient also had features of dementia. Multiple consultants are following the patient closely. No chest pain or palpitations. No fever. A 2D echo with Doppler was done which showed ejection fraction about 40% to 50%. No chest pain or palpitations. No fever. PHYSICAL EXAMINATION: On exam, alert and oriented x2. Pulse is 87, blood pressure 136/83, respiration 18, temperature 97.6, pulse ox 94% on room air. HEENT: Conjunctivae normal. NECK: No jugular venous distention. CARDIOVASCULAR: S1, S2 muffled. RESPIRATORY: Breath sounds diminished at the bases. A few scattered rhonchi and crackles. Abdomen is soft, nontender. LEGS: No edema, no swelling. NERVOUS SYSTEM: No focal deficits. LABS: WBC 5.8, hemoglobin 11.9. ASSESSMENT: 1. Change in mental status, acute bibasilar pneumonia, possibly gram-negative and sepsis, present on admission. 2. Change in mental status with metabolic encephalopathy, acute secondary to sepsis. 3. History of dementia. 4. Congestive heart failure with chronic systolic dysfunction, ejection fraction 45% to 50%. 5. Atrial fibrillation with fast ventricular rate, present on admission. 6. Elevated lactic acid. 7. Elevated troponin around 0.085, indeterminate. 8. Diabetes mellitus type 2. 9. Hypertension. 10.Chronic kidney disease stage 3. 11.Gait dysfunction. 12.Extensive dry skin of the lower extremities. 13.NO CODE, NO CPR, NO VENT. RECOMMENDATIONS AND DISCUSSION: Recommend to continue current medications, continues symptomatic treatment. Prognosis guarded because of multiple complex medical issues. The patient is asking to go home. I would recommend oncology social work to evaluate the home situation because of the state of the patient and repeat labs. Continue to monitor. Prognosis guarded. Further recommendations to follow. MMODL / IJN: [id number] / MTDD
[2018-04-12] MEDS: APIXABAN 2.5 MG TABLET PO SCH ×2 (09:12→21:09)
[2018-04-12] MEDS: NICOTINE 14MG/24HR PATCH TRANSDERM SCH (09:14)
[2018-04-12] MEDS: MULTIVITAMINS, THERA 1 EACH TAB PO SCH (09:14)
[2018-04-12] MEDS: METOPROLOL TARTRATE 25 MG TAB PO SCH ×2 (09:14→21:09)
[2018-04-12] MEDS: SILVER sulfADIAZINE Cream 400 GM 1 APPLIC APPLIC TOPICAL SCH (09:16)
--- NOTE | 2018-04-12 11:48 | FL ---
EXAMINATION TYPE: FL barium swallow w video DATE OF EXAM: 04/12/2018 MODIFIED SWALLOW / DEGLUTITION STUDY CLINICAL HISTORY: Dysphagia. Rule out silent aspiration. TECHNIQUE: Deglutition study is performed utilizing thin liquid barium, honey and nectar thick liqui d barium, barium thick applesauce, and barium coated cracker. A total of 2 minutes 37 seconds of fluo roscopic time was utilized during procedure. 0 spot images are saved to PACS. COMPARISON: None. FINDINGS: The oral and pharyngeal phases show satisfactory initiation and propagation with all modali ties tested. Satisfactory mastication is seen with solid modalities tested. There is no evidence of penetration or aspiration with any modality tested. Moderate pharyngeal residue was appreciated with all modalities tested. IMPRESSION: No penetration or aspiration observed. Please refer to speech therapist notes for furthe r details if necessary.
[2018-04-12 12:06] LABS: Glucose,Whole Blood 134 mg/dL (75-99)
[2018-04-12] MEDS: THIAMINE 100 MG TAB PO SCH ×2 (12:50→17:32)
--- NOTE | 2018-04-12 14:33 | P.CRDCN ---
History of Present Illness Consult date: 04/11/18 Requesting physician: Pantera Perze Consult reason: atrial fibrillation Chief complaint: Fall History of present illness: This is a pleasant 77-year-old gentleman, he has a history of diabetes mellitus and hyperlipidemia. He was brought here to the emergency room from [facility] after being evaluated for altered mental status and being found on the floor incontinent of urine by a neighbor. Workup there revealed atrial fibrillation with a rapid ventricular response, dehydration, basilar pneumonia, rhabdomyolysis and mild troponin elevation. Chest x-ray on arrival here revealed bibasilar infiltrates. CAT scan of the brain revealed cerebral atrophy and hydrocephalus with no acute intracranial abnormalities. White blood cell count 9.1, hemoglobin 13.0, creatinine 1.5, troponin 0.06, 0.08. Urine drug screen was negative, serum alcohol less than 10, influenza screen negative. Urinalysis with moderate blood and white blood cell count. Cardiology consultation was requested because of the atrial fibrillation as well as the abnormality in troponin. Patient overall was somewhat confused as to why he is here in the hospital, he denies having any chest discomfort or shortness of breath. He does have a loose nonproductive cough. Oxygen saturation in the mid-90s on room air. He has remained afebrile. Hemodynamically stable. Past Medical History Past Medical History: Diabetes Mellitus, Hypertension History of Any Multi-Drug Resistant Organisms: None Reported Past Surgical History: No Surgical Hx Reported Past Psychological History: No Psychological Hx Reported Smoking Status: Never smoker Past Alcohol Use History: None Reported Past Drug Use History: None Reported - Past Family History Father Family Medical History: Musculoskeletal Disorder Additional Family Medical History / Comment(s): MS Medications and Allergies Home Medications Medication Instructions Recorded Confirmed Type Atorvastatin [Lipitor] 40 mg PO DAILY 02/06/17 04/09/18 History Allergies Allergy/AdvReac Type Severity Reaction Status Date / Time No Known Allergies Allergy Verified 04/09/18 21:36 Physical Exam Vitals: Vital Signs Temp Pulse Pulse Resp BP Pulse Ox 04/12/18 12:49 84 04/12/18 12:39 86 04/12/18 12:00 98.7 F 62 20 137/72 95 04/12/18 08:05 98.5 F 67 20 126/69 95 04/12/18 07:04 88 04/12/18 06:55 86 04/12/18 04:00 97.9 F 75 16 125/82 94 L 04/12/18 00:30 97.8 F 88 18 133/90 96 04/11/18 20:57 98.7 F 106 H 19 141/69 96 04/11/18 16:00 97.6 F 87 18 136/83 94 L Intake and Output 04/11/18 04/12/18 04/12/18 22:59 06:59 14:59 Intake Total 150 0 Output Total 450 825 Balance -300 -825 0 Intake: Intake, IV Titration 150 Amount Sodium Chloride 0.9% 1, 150 000 ml @ 150 mls/hr IV . Q6H40M [facility] Rx#:[id number] Oral 0 Output: Urine 450 825 Other: Voiding Method Indwelling Catheter Indwelling Catheter Indwelling Catheter # Voids 1 Weight 84 kg PHYSICAL EXAMINATION: GENERAL: 77-year-old gentleman in no acute distress at the time of my examination, disheveled HEENT: Head is atraumatic, normocephalic. Pupils equal, round. Sclera anicteric. Conjunctiva are clear. Mucous membranes of the mouth are moist. Neck is supple. There is no elevated jugular venous pressure.] bruit is heard. HEART EXAMINATION: Heart S1 and S2 irregularly irregular a systolic murmur is heard. CHEST EXAMINATION: Lungs reveal scattered coarse rhonchi, diminished air entry to bilateral bases. ABDOMEN: Soft, nontender. Bowel sounds are heard. No organomegaly noted. EXTREMITIES: 2+ peripheral pulses with no evidence of peripheral edema and no calf tenderness noted. NEUROLOGIC [patient is awake, mildly confused Results 04/12/18 05:56 04/12/18 06:32 Cardiac Enzymes 04/12/18 Range/Units 06:32 AST 41 (17-59) U/L CBC 04/12/18 Range/Units 05:56 WBC 7.0 (3.8-10.6) k/uL RBC 4.17 L (4.30-5.90) m/uL Hgb 12.1 L (13.0-17.5) gm/dL Hct 38.8 L (39.0-53.0) % Plt Count 218 (150-450) k/uL Comprehensive Metabolic Panel 04/12/18 Range/Units 06:32 Sodium 140 (137-145) mmol/L Potassium 4.0 (3.5-5.1) mmol/L Chloride 115 H (98-107) mmol/L Carbon Dioxide 18 L (22-30) mmol/L BUN 17 (9-20) mg/dL Creatinine 1.27 H (0.66-1.25) mg/dL Glucose 98 (74-99) mg/dL Calcium 8.0 L (8.4-10.2) mg/dL AST 41 (17-59) U/L ALT 39 (21-72) U/L Alkaline Phosphatase 65 (38-126) U/L Total Protein 4.9 L (6.3-8.2) g/dL Albumin 2.4 L (3.5-5.0) g/dL Current Medications Generic Name Dose Route Start Last Admin Trade Name Freq PRN Reason Stop Dose Admin Acetaminophen 650 mg 04/10/18 03:10 04/10/18 03:24 Tylenol Tab PO 650 mg Q4HR PRN Administration Fever and/ or Pain Albuterol/Ipratropium 3 ml 04/10/18 08:00 04/12/18 12:40 Duoneb 0.5 Mg-3 Mg/3 Ml Soln INHALATION 3 ml RT-TID HELEN Administration Albuterol/Ipratropium 3 ml 04/09/18 20:50 Duoneb 0.5 Mg-3 Mg/3 Ml Soln INHALATION RT-Q2H PRN Shortness Of Breath Or Wheezing Apixaban 2.5 mg 04/11/18 20:00 04/12/18 09:12 Eliquis PO 2.5 mg BID HELEN Administration Budesonide/Formoterol Fumarate 2 puff 04/10/18 08:00 04/12/18 06:54 Symbicort 160-4.5 Mcg Inhaler INHALATION 2 puff RT-BID HELEN Administration Diphenhydramine HCl 25 mg 04/10/18 16:52 Benadryl PO BID PRN Itching Hydromorphone HCl 0.5 mg 04/09/18 23:23 Dilaudid IVP Q6HR PRN Severe Pain Ceftriaxone Sodium 1,000 mg/ 50 mls @ 100 mls/hr 04/10/18 21:00 04/11/18 20: 43 Sodium Chloride IVPB 100 mls/hr Q24H HELEN Administration Sodium Chloride 1,000 mls @ 150 mls/hr 04/09/18 20:00 04/12/18 09:07 Saline 0.9% IV 150 mls/hr .Q6H40M HELEN Administration Piperacillin Sod/Tazobactam 100 mls @ 25 mls/hr 04/11/18 20:00 04/12/18 12:50 Sod 3.375 gm/ Sodium Chloride IVPB 25 mls/hr Q8H HELEN Administration Insulin Aspart 0 unit 04/09/18 21:00 04/12/18 12:49 Novolog SQ 1 unit ACHS HELEN Administration Protocol Lorazepam 1 mg 04/09/18 23:21 Ativan IV Q2HR PRN CIWA 8 or 9 Lorazepam 1 mg 04/09/18 23:21 Ativan IV Q1HR PRN CIWA 10 to 15 Lorazepam 2 mg 04/09/18 23:21 Ativan IV Q6HR PRN Seizures Metformin HCl 500 mg 04/10/18 07:30 04/12/18 06:28 Glucophage PO Not Given BID-W/MEALS [facility] Metoprolol Tartrate 25 mg 04/11/18 21:00 04/12/18 09:14 Lopressor PO 25 mg BID HELEN Administration Miscellaneous Information 1 each 04/09/18 19:48 Pneumonia Protocol Utilized PO ONCE PRN Per Protocol Multi-Ingred Cream/Lotion/Oil/Oint 1 applic 04/10/18 16:14 Eucerin Cream TOPICAL TID PRN Dry Skin Multivitamins 1 each 04/10/18 12:00 04/12/18 09:14 Theragran PO 1 each DAILY@1200 HELEN Administration Nicotine 1 patch 04/10/18 09:00 04/12/18 09:14 Habitrol 14mg/24hr Patch TRANSDERM 1 patch DAILY HELEN Administration Pantoprazole Sodium 40 mg 04/10/18 07:30 04/12/18 06:28 Protonix PO Not Given AC-BRKFST [facility] Silver Sulfadiazine 1 applic 04/11/18 09:00 04/12/18 09:16 Silvadene Cream TOPICAL 1 applic DAILY HELEN Administration Thiamine HCl 100 mg 04/09/18 17:00 04/12/18 12:50 Vitamin B-1 PO 100 mg BID@1200,1700 HELEN Administration Intake and Output 04/11/18 04/12/18 04/12/18 22:59 06:59 14:59 Intake Total 150 0 Output Total 450 825 Balance -300 -825 0 Intake: Intake, IV Titration 150 Amount Sodium Chloride 0.9% 1, 150 000 ml @ 150 mls/hr IV . Q6H40M [facility] Rx#:[id number] Oral 0 Output: Urine 450 825 Other: Voiding Method Indwelling Catheter Indwelling Catheter Indwelling Catheter # Voids 1 Weight 84 kg 04/12/18 05:56 04/12/18 06:32 EKG Interpretations (text) EKG showed atrial fibrillation with a moderately rapid ventricular response Assessment and Plan Plan: Assessment and plan #1 Altered mental status of unclear etiology found on floor by neighbors incontinent of urine and possible metabolic encephalopathy. #2 Atrial fibrillation with a rapid ventricular response, appears to be new for the patient. Unsure if it is chronic. #3 Bibasilar pneumonia, suspect aspiration. #4 Febrile illness secondary to above. #5 Urinary tract infection, culture pending. #6 Diabetes mellitus. #7 Hyperlipidemia. #8 Rhabdomyolysis. #9 Elevated troponins with no significant rise and fall pattern, could be secondary to pneumonia and sepsis. #10 Acute renal failure Plan We will obtain an echocardiogram with Doppler study. Start the patient on Eliquis for anticoagulation for stroke prevention. DNP note has been reviewed, I agree with a documented findings and plan of care. Patient was seen and examined.
--- NOTE | 2018-04-12 14:44 | P.PN ---
Subjective Progress Note Date: 04/12/18 This is a pleasant 77-year-old gentleman who follows with the [facility] for his primary care needs. He has a history of diabetes mellitus and hyperlipidemia. He was brought here to the emergency room from [facility] after being evaluated for altered mental status and being found on the floor incontinent of urine by a neighbor. Workup there revealed atrial fibrillation with a rapid ventricular response, dehydration, basilar pneumonia, rhabdomyolysis and mild troponin elevation. Here in the emergency room asked x-ray did reveal bibasilar infiltrates. Computed tomography scan of the brain revealed cerebral atrophy and hydrocephalus but no acute intracranial abnormalities. Results revealed a white count of 9.1. Hemoglobin 13.0. Bicarb 18. Creatinine 1.55. Troponin 0.064, 0.085. Serum alcohol less than 10. Urine drug screen negative. Influenza screen negative. Urinalysis with moderate blood and WBCs. He is seen today in consultation on the selective care unit. He is currently awake and alert in no acute distress. He is somewhat confused as to why he was transferred here. He denies any chest pain currently. He denies any worsening shortness of breath. He does have a loose nonproductive cough. He is maintaining good O2 saturations in the mid 90s on room air. He's been afebrile. Hemodynamically stable. Follow-up labs reveal a WBC of 7.7. Hemoglobin 12.0. Creatinine 1.47. CK 409. 04/12/2018 Patient seen and examined this morning, denies any chest pain, no difficulty in breathing, no dizziness or lightheadedness. He denies any cough. Patient is still unsure exactly of why he is in the hospital. Continues to be in atrial fibrillation with PVCs. Blood pressure 136/70, in the 80s. White blood cell count 7.0, hemoglobin 12.1, platelet count 218. Sodium 140, potassium 4.0, BUN 17, creatinine 1.2. Echo shows ejection fraction of 45-50%, basal inferior wall hypokinesia. Objective - Vital Signs Vital signs: Vital Signs Temp 98.7 F 04/12/18 12:00 Pulse 84 04/12/18 12:49 Resp 20 04/12/18 12:00 BP 137/72 04/12/18 12:00 Pulse Ox 95 04/12/18 12:00 Intake & Output 04/11/18 04/12/18 04/12/18 18:59 06:59 18:59 Intake Total 150 0 Output Total 475 1275 Balance -475 -1125 0 Weight 84 kg Intake: Intake, IV Titration 150 Amount Sodium Chloride 0.9% 1, 150 000 ml @ 150 mls/hr IV . Q6H40M [facility] Rx#:[id number] Oral 0 Output: Urine 475 1275 Other: Voiding Method Indwelling Catheter Indwelling Catheter Indwelling Catheter # Voids 1 - Exam Physical Exam: Revealed a 77-year-old white male in no distress. On room air. Head: Atraumatic normocephalic. HEENT:Neck is supple.No neck masses.No thyromegaly.No JVD. PERRLA, EOMI, dry mucous membranes. Chest: Crackles at the bases, no rhonchi no wheezes. Diminished breath sound bilaterally. No chest wall tenderness. Symmetrical chest expansion. Cardiac Exam: [Irregular irregular rhythm, normal S1 and S2, 2/6 systolic murmur throughout the precordium. Abdomen: Soft, nontender, no megaly, no rebound, no guarding, normal bowel sounds. Extremities: No clubbing, no edema, no cyanosis. Neurological Exam: Slightly confused otherwise No focal neurologic deficit. Skin: No rashes. Lymphatics: No lymphadenopathy. - Labs CBC & Chem 7: 04/12/18 05:56 04/12/18 06:32 Labs: Abnormal Lab Results - Last 24 Hours (Table) 04/11/18 04/11/18 04/12/18 Range/Units 17:00 20:35 05:56 RBC 4.17 L (4.30-5.90) m/uL Hgb 12.1 L (13.0-17.5) gm/dL Hct 38.8 L (39.0-53.0) % Chloride (98-107) mmol/L Carbon Dioxide (22-30) mmol/L Creatinine (0.66-1.25) mg/dL POC Glucose (mg/dL) 125 H 100 H (75-99) mg/dL Calcium (8.4-10.2) mg/dL Creatine Kinase (55-170) U/L Total Protein (6.3-8.2) g/dL Albumin (3.5-5.0) g/dL 04/12/18 04/12/18 04/12/18 Range/Units 06:06 06:32 11:58 RBC (4.30-5.90) m/uL Hgb (13.0-17.5) gm/dL Hct (39.0-53.0) % Chloride 115 H (98-107) mmol/L Carbon Dioxide 18 L (22-30) mmol/L Creatinine 1.27 H (0.66-1.25) mg/dL POC Glucose (mg/dL) 101 H 134 H (75-99) mg/dL Calcium 8.0 L (8.4-10.2) mg/dL Creatine Kinase 190 H (55-170) U/L Total Protein 4.9 L (6.3-8.2) g/dL Albumin 2.4 L (3.5-5.0) g/dL Microbiology - Last 24 Hours (Table) 04/09/18 19:51 Blood Culture - Preliminary Blood No Growth after 48 hours 04/09/18 23:34 Urine Culture - Final Urine,Catheterized Assessment and Plan Plan: Assessment and plan #1 Altered mental status of unclear etiology found on floor by neighbors incontinent of urine and possible metabolic encephalopathy. #2 Atrial fibrillation with a rapid ventricular response, appears to be new for the patient. Unsure if it is chronic. #3 Bibasilar pneumonia, suspect aspiration. #4 Febrile illness secondary to above. #5 Urinary tract infection, culture pending. #6 Diabetes mellitus. #7 Hyperlipidemia. #8 Rhabdomyolysis. #9 Elevated troponins , possible non-Q-wave myocardial infarction, maximize medical therapy. #10 Acute renal failure Plan Echocardiogram with Doppler study revealed an ejection fraction of 45-50% with mild inferior basal hypokinesia. We will start the patient on a baby aspirin daily, check a lipid profile, initiate a low-dose statin. DNP note has been reviewed, I agree with a documented findings and plan of care. Patient was seen and examined.
[2018-04-12 15:11] LABS: Cholesterol 80 mg/dL (<200); HDL Cholesterol 22 mg/dL (40-60); LDL Cholesterol,Calculated 41 mg/dL (0-99); Triglycerides 83 mg/dL (<150)
--- NOTE | 2018-04-12 15:41 | P.PN ---
Subjective Progress Note Date: 04/12/18 Principal diagnosis: Altered mental status, metabolic encephalopathy, A. fib with RVR, aspiration pneumonia This is a pleasant 77-year-old gentleman who follows with the [facility] for his primary care needs. He has a history of diabetes mellitus and hyperlipidemia. He was brought here to the emergency room from [facility] after being evaluated for altered mental status and being found on the floor incontinent of urine by a neighbor. Workup there revealed atrial fibrillation with a rapid ventricular response, dehydration, basilar pneumonia, rhabdomyolysis and mild troponin elevation. Here in the emergency room asked x-ray did reveal bibasilar infiltrates. Computed tomography scan of the brain revealed cerebral atrophy and hydrocephalus but no acute intracranial abnormalities. Results revealed a white count of 9.1. Hemoglobin 13.0. Bicarb 18. Creatinine 1.55. Troponin 0.064, 0.085. Serum alcohol less than 10. Urine drug screen negative. Influenza screen negative. Urinalysis with moderate blood and WBCs. He is seen today in consultation on the selective care unit. He is currently awake and alert in no acute distress. He is somewhat confused as to why he was transferred here. He denies any chest pain currently. He denies any worsening shortness of breath. He does have a loose nonproductive cough. He is maintaining good O2 saturations in the mid 90s on room air. He's been afebrile. Hemodynamically stable. Follow-up labs reveal a WBC of 7.7. Hemoglobin 12.0. Creatinine 1.47. CK 409. Reevaluated today on 04/11/2018, patient remains confused, denies any complaints. Denies any headaches no blurred vision no dizziness. Denies any cough no wheezing no shortness of breath, no chest pain. No nausea no vomiting no abdominal pain. Patient tells me that he has no idea why he is in the hospital in the first place, and he should be discharged home. Labs noted a normal CBC. Normal electrolytes. Creatinine is 1.39. Admission creatinine was 1.55. On 04/12/2018 patient seen in follow-up. Patient is awake and alert, room air pulse ox is 95%, hemodynamically stable, no fever no chills, patient is afebrile. Blood culture and urine culture showed no growth. Lung sounds are positive for some crackles at the bases, no wheezes or rhonchi. Chest wall tenderness, symmetrical chest expansion. Patient had a modified barium swallow , and no penetration or aspiration was observed. Better coverage in the form of Zosyn. Nebulized bronchodilators,Symbicort. Patient is in A. fib, rate is better controlled, anticoagulated with Eliquis. Objective - Vital Signs Vital signs: Vital Signs Temp 98.7 F 04/12/18 12:00 Pulse 84 04/12/18 12:49 Resp 20 04/12/18 12:00 BP 137/72 04/12/18 12:00 Pulse Ox 95 04/12/18 12:00 Intake & Output 04/11/18 04/12/18 04/12/18 18:59 06:59 18:59 Intake Total 150 0 Output Total 475 1275 Balance -475 -1125 0 Weight 84 kg Intake: Intake, IV Titration 150 Amount Sodium Chloride 0.9% 1, 150 000 ml @ 150 mls/hr IV . Q6H40M [facility] Rx#:[id number] Oral 0 Output: Urine 475 1275 Other: Voiding Method Indwelling Catheter Indwelling Catheter Indwelling Catheter # Voids 1 - Exam Physical Exam: Revealed a 77-year-old white male in no distress. On room air. Head: Atraumatic normocephalic. HEENT:[Neck is supple.] [No neck masses.] [No thyromegaly.] [No JVD.] PERRLA, EOMI, dry mucous membranes. Chest: [Crackles at the bases, no rhonchi no wheezes. Diminished breath sound bilaterally. No chest wall tenderness. Symmetrical chest expansion..] Cardiac Exam: [Irregular irregular rhythm, normal S1 and S2, 2/6 systolic murmur throughout the precordium..] Abdomen: [Soft, nontender, no megaly, no rebound, no guarding, normal bowel sounds.] Extremities: [No clubbing, no edema, no cyanosis.] Neurological Exam: [Slightly confused otherwise No focal neurologic deficit. Skin: No rashes. Lymphatics: No lymphadenopathy.] - Labs CBC & Chem 7: 04/12/18 05:56 04/12/18 06:32 Labs: Abnormal Lab Results - Last 24 Hours (Table) 04/11/18 04/11/18 04/12/18 Range/Units 17:00 20:35 05:56 RBC 4.17 L (4.30-5.90) m/uL Hgb 12.1 L (13.0-17.5) gm/dL Hct 38.8 L (39.0-53.0) % Chloride (98-107) mmol/L Carbon Dioxide (22-30) mmol/L Creatinine (0.66-1.25) mg/dL POC Glucose (mg/dL) 125 H 100 H (75-99) mg/dL Calcium (8.4-10.2) mg/dL Creatine Kinase (55-170) U/L Total Protein (6.3-8.2) g/dL Albumin (3.5-5.0) g/dL HDL Cholesterol (40-60) mg/dL 04/12/18 04/12/18 04/12/18 Range/Units 06:06 06:32 06:32 RBC (4.30-5.90) m/uL Hgb (13.0-17.5) gm/dL Hct (39.0-53.0) % Chloride 115 H (98-107) mmol/L Carbon Dioxide 18 L (22-30) mmol/L Creatinine 1.27 H (0.66-1.25) mg/dL POC Glucose (mg/dL) 101 H (75-99) mg/dL Calcium 8.0 L (8.4-10.2) mg/dL Creatine Kinase 190 H (55-170) U/L Total Protein 4.9 L (6.3-8.2) g/dL Albumin 2.4 L (3.5-5.0) g/dL HDL Cholesterol 22 L (40-60) mg/dL 04/12/18 Range/Units 11:58 RBC (4.30-5.90) m/uL Hgb (13.0-17.5) gm/dL Hct (39.0-53.0) % Chloride (98-107) mmol/L Carbon Dioxide (22-30) mmol/L Creatinine (0.66-1.25) mg/dL POC Glucose (mg/dL) 134 H (75-99) mg/dL Calcium (8.4-10.2) mg/dL Creatine Kinase (55-170) U/L Total Protein (6.3-8.2) g/dL Albumin (3.5-5.0) g/dL HDL Cholesterol (40-60) mg/dL Microbiology - Last 24 Hours (Table) 04/09/18 19:51 Blood Culture - Preliminary Blood No Growth after 48 hours 04/09/18 23:34 Urine Culture - Final Urine,Catheterized Assessment and Plan Plan: #1 Altered mental status of unclear etiology found on floor by neighbors incontinent of urine and possible metabolic encephalopathy. #2 Atrial fibrillation with a rapid ventricular response. #3 Bibasilar pneumonia, possible aspiration hence we'll change antibiotics to Zosyn. #4 Febrile illness secondary to above. #5 Urinary tract infection, culture pending. #6 Diabetes mellitus. #7 Hyperlipidemia. #8 Rhabdomyolysis. #9 Elevated troponins. #10 Acute renal failure Plan: Repeat chest x-ray in the morning, continue Zosyn, she was unable to produce a sputum specimen. But clinically he is improving, hemodynamically stable, on room air. No worsening dyspnea, no leukocytosis, today's labs have been noted. Renal profile is improving. Will continue to follow I performed a history & physical examination of the patient and discussed their management with my nurse practitioner, Brianna Williamson. I reviewed the nurse practitioner's note and agree with the documented findings and plan of care. Lung sounds are positive for diminished with bibasilar crackles. The findings and the impression was discussed with the patient. I attest to the documentation by the nurse practitioner. Time with Patient: Less than 30
[2018-04-12 16:10] LABS: Glucose,Whole Blood 201 mg/dL (75-99)
[2018-04-12] MEDS: ASPIRIN 81 MG PO SCH (17:32)
--- NOTE | 2018-04-12 20:34 | PN ---
PROGRESS NOTE DATE OF SERVICE: 04/12/2018 This 77-year-old gentleman who was admitted with multiple medical problems including change in mental status also had possible pneumonia. The patient being closely monitored. community health outreach worker is working on the home situation. No chest pain. No palpitations. Video fluoroscopic swallow test done showed no penetration. EXAM: Alert and oriented x2. Pulse is 51, blood pressure 120/70, respiration 20, temperature 98.1, pulse ox 98% on room air. HEENT: Conjunctivae normal. NECK: No jugular venous distention. CARDIOVASCULAR: S1, S2 muffled. RESPIRATORY: Breath sounds diminished in the bases. A few scattered rhonchi and crackles. Abdomen is soft, nontender. No mass palpable. Legs no edema. No swelling. NERVOUS SYSTEM: Higher functions as mentioned earlier. Moves all four extremities. Lymphatics: No lymph nodes palpable in the neck, axillae or groin. SKIN: Dry skin present. LAB STUDIES: At this time shows WBC 7, hemoglobin 12.1. Accu-Cheks noted. ASSESSMENT: 1. Change in mental status acute bibasilar pneumonia possibly gram-negative and sepsis present on admission. 2. Change in mental status, acute metabolic encephalopathy, acute, secondary to sepsis. 3. History of dementia. 4. Congestive heart failure with chronic systolic dysfunction ejection fraction 40- 50%. 5. Atrial fibrillation with fast ventricular rate present on admission. 6. Elevated lactic acid. 7. Elevated troponin 0.085, indeterminate. 8. Diabetes mellitus type 2. 9. Hypertension. 10.Chronic kidney disease stage III. 11.Gait dysfunction. 12.Extensive dry skin on the lower extremities. 13.NO CODE, NO CPR, NO VENT. RECOMMENDATIONS AND DISCUSSION: I recommend to continue current management and symptomatic treatment. Otherwise, at this time, I would recommend the patient closely follow with multiple consultants. Guarded prognosis. Further recommendations to follow. community health outreach worker to evaluate the patient is not willing to go for ECF at this time. Further recommendations to follow. [employer] to evaluate the home situation. MMODL / IJN: [id number] /
[2018-04-12] MEDS: ATORVASTATIN 20 MG TAB PO SCH (21:09)
[2018-04-12] MEDS: diphenhydrAMINE 25 MG CAP PO PRN (21:09)
[2018-04-12 21:17] LABS: Glucose,Whole Blood 175 mg/dL (75-99)
[2018-04-13] MEDS: PIPERACILLIN-TAZOBACTAM 3.375 GM in SODIUM CHLORIDE 0.9% 100 ML IVPB SCH ×3 (04:29→20:49)
[2018-04-13 06:08] LABS: Glucose,Whole Blood 202 mg/dL (75-99)
[2018-04-13] MEDS: PANTOPRAZOLE 40 MG TABLET PO SCH (06:36)
[2018-04-13] MEDS: metFORMIN 500 MG TAB PO SCH ×2 (06:36→18:30)
[2018-04-13] MEDS: INSULIN ASPART 100 UNIT/ML 1 ML 10 ML VIAL SQ SCH ×4 (06:37→22:44)
[2018-04-13] MEDS: SODIUM CHLORIDE 0.9% 1,000 ML IV SCH ×3 (06:37→18:31)
[2018-04-13 06:39] LABS: Albumin 2.4 g/dL (3.5-5.0); Calcium 8.2 mg/dL (8.4-10.2); Potassium 4.2 mmol/L (3.5-5.1); Total Bilirubin 0.6 mg/dL (0.2-1.3); Total Protein 4.9 g/dL (6.3-8.2)
[2018-04-13 06:47] LABS: Basophils % (A) 0 %; Eosinophils # (A) 0.3 k/uL (0-0.7); Eosinophils % (A) 5 %; HCT 38.5 % (39.0-53.0); HGB 12.6 gm/dL (13.0-17.5); Lymphocytes % (A) 14 %; MCH 30.1 pg (25.0-35.0); MCHC 32.7 g/dL (31.0-37.0); MCV 92.3 fL (80.0-100.0); Mean Platelet Volume 8.2; Monocytes # (A) 0.5 k/uL (0-1.0); Monocytes % (A) 7 %; Neutrophils # (A) 5.2 k/uL (1.3-7.7); Neutrophils % (A) 72 %; Platelet Count 223 k/uL (150-450); RBC 4.17 m/uL (4.30-5.90); RDW 14.4 % (11.5-15.5)
[2018-04-13] MEDS: MULTIVITAMINS, THERA 1 EACH TAB PO SCH (09:53)
[2018-04-13] MEDS: APIXABAN 2.5 MG TABLET PO SCH ×2 (09:54→20:48)
[2018-04-13] MEDS: METOPROLOL TARTRATE 25 MG TAB PO SCH ×2 (09:54→20:48)
[2018-04-13] MEDS: THIAMINE 100 MG TAB PO SCH ×2 (09:54→18:30)
[2018-04-13] MEDS: NICOTINE 14MG/24HR PATCH TRANSDERM SCH (09:54)
[2018-04-13] MEDS: ASPIRIN 81 MG PO SCH (09:54)
[2018-04-13] MEDS: IPRATROPIUM-ALBUTEROL 3 ML NEB INHALATION SCH ×3 (10:04→21:28)
[2018-04-13] MEDS: SYMBICORT 160-4.5 MCG INHALER INHALATION SCH ×2 (10:05→21:28)
--- NOTE | 2018-04-13 11:02 | XR ---
EXAMINATION TYPE: XR chest 2V DATE OF EXAM: 04/13/2018 COMPARISON: 04/10/2018 HISTORY: 77 year-old male shortness of breath and cough TECHNIQUE: AP and lateral views FINDINGS: Very low lung volumes. This limits assessment of heart size and limits assessment of the lung bases. Prominent patchy bibasilar opacities are present. No sizable effusion. IMPRESSION: Very low lung volumes limiting assessment of the lung bases and heart size. Prominent bibasilar opaci ties. Correlate for extensive atelectasis versus infectious or aspiration pneumonitis.
[2018-04-13] MEDS: SILVER sulfADIAZINE Cream 400 GM 1 APPLIC APPLIC TOPICAL SCH (11:05)
[2018-04-13 11:47] LABS: Glucose,Whole Blood 146 mg/dL (75-99)
--- NOTE | 2018-04-13 14:10 | P.PN ---
Subjective Progress Note Date: 04/13/18 This is a pleasant 77-year-old gentleman who follows with the [facility] for his primary care needs. He has a history of diabetes mellitus and hyperlipidemia. He was brought here to the emergency room from [facility] after being evaluated for altered mental status and being found on the floor incontinent of urine by a neighbor. Workup there revealed atrial fibrillation with a rapid ventricular response, dehydration, basilar pneumonia, rhabdomyolysis and mild troponin elevation. Here in the emergency room asked x-ray did reveal bibasilar infiltrates. Computed tomography scan of the brain revealed cerebral atrophy and hydrocephalus but no acute intracranial abnormalities. Results revealed a white count of 9.1. Hemoglobin 13.0. Bicarb 18. Creatinine 1.55. Troponin 0.064, 0.085. Serum alcohol less than 10. Urine drug screen negative. Influenza screen negative. Urinalysis with moderate blood and WBCs. He is seen today in consultation on the selective care unit. He is currently awake and alert in no acute distress. He is somewhat confused as to why he was transferred here. He denies any chest pain currently. He denies any worsening shortness of breath. He does have a loose nonproductive cough. He is maintaining good O2 saturations in the mid 90s on room air. He's been afebrile. Hemodynamically stable. Follow-up labs reveal a WBC of 7.7. Hemoglobin 12.0. Creatinine 1.47. CK 409. 04/12/2018 Patient seen and examined this morning, denies any chest pain, no difficulty in breathing, no dizziness or lightheadedness. He denies any cough. Patient is still unsure exactly of why he is in the hospital. Continues to be in atrial fibrillation with PVCs. Blood pressure 136/70, in the 80s. White blood cell count 7.0, hemoglobin 12.1, platelet count 218. Sodium 140, potassium 4.0, BUN 17, creatinine 1.2. Echo shows ejection fraction of 45-50%, basal inferior wall hypokinesia. 04/13/2018 Patient seen and examined this morning, blood pressure 112/60 with a heart rate in the 80s. White blood cell count 4.1, hemoglobin 12.6, platelet count 223. Sodium 138, potassium 4.2, BUN 22, creatinine 1.3. Repeat chest x-ray from today reveals a very low lung volumes limiting assessment of the lung bases and heart size. Prominent bibasilar opacities. Correlate for extensive atelectasis versus infectious or aspiration pneumonitis. Objective - Vital Signs Vital signs: Vital Signs Temp 97.5 F L 04/13/18 11:55 Pulse 84 04/13/18 13:40 Resp 20 04/13/18 11:55 BP 113/66 04/13/18 11:55 Pulse Ox 94 L 04/13/18 11:55 Intake & Output 04/12/18 04/13/18 04/13/18 18:59 06:59 18:59 Intake Total 0 322 Output Total 1450 Balance 0 -1128 Weight 84 kg Intake: Intake, IV Titration 100 Amount Piperacillin-Tazobactam 3 100 .375 gm In Sodium Chloride 0.9% 100 ml @ 25 mls/hr IVPB Q8H [facility] Rx#: [id number] Oral 0 222 Output: Urine 1450 Other: Voiding Method Indwelling Catheter Indwelling Catheter Indwelling Catheter # Voids 1 # Bowel Movements 2 - Exam Physical Exam: Revealed a 77-year-old white male in no distress. On room air. Head: Atraumatic normocephalic. HEENT:Neck is supple.No neck masses.No thyromegaly.No JVD. PERRLA, EOMI, dry mucous membranes. Chest: Crackles at the bases, no rhonchi no wheezes. Diminished breath sound bilaterally. No chest wall tenderness. Symmetrical chest expansion. Cardiac Exam: [Irregular irregular rhythm, normal S1 and S2, 2/6 systolic murmur throughout the precordium. Abdomen: Soft, nontender, no megaly, no rebound, no guarding, normal bowel sounds. Extremities: No clubbing, no edema, no cyanosis. Neurological Exam: Slightly confused otherwise No focal neurologic deficit. Skin: No rashes. Lymphatics: No lymphadenopathy. - Labs CBC & Chem 7: 04/13/18 05:40 04/13/18 05:40 Labs: Abnormal Lab Results - Last 24 Hours (Table) 04/12/18 04/12/18 04/12/18 Range/Units 06:32 16:08 21:14 RBC (4.30-5.90) m/uL Hgb (13.0-17.5) gm/dL Hct (39.0-53.0) % Chloride (98-107) mmol/L Carbon Dioxide (22-30) mmol/L BUN (9-20) mg/dL Creatinine (0.66-1.25) mg/dL Glucose (74-99) mg/dL POC Glucose (mg/dL) 201 H 175 H (75-99) mg/dL Calcium (8.4-10.2) mg/dL AST (17-59) U/L Creatine Kinase (55-170) U/L Total Protein (6.3-8.2) g/dL Albumin (3.5-5.0) g/dL HDL Cholesterol 22 L (40-60) mg/dL 04/13/18 04/13/18 04/13/18 Range/Units 05:40 05:40 06:05 RBC 4.17 L (4.30-5.90) m/uL Hgb 12.6 L (13.0-17.5) gm/dL Hct 38.5 L (39.0-53.0) % Chloride 113 H (98-107) mmol/L Carbon Dioxide 17 L (22-30) mmol/L BUN 22 H (9-20) mg/dL Creatinine 1.33 H (0.66-1.25) mg/dL Glucose 170 H (74-99) mg/dL POC Glucose (mg/dL) 202 H (75-99) mg/dL Calcium 8.2 L (8.4-10.2) mg/dL AST 62 H (17-59) U/L Creatine Kinase 171 H (55-170) U/L Total Protein 4.9 L (6.3-8.2) g/dL Albumin 2.4 L (3.5-5.0) g/dL HDL Cholesterol (40-60) mg/dL 04/13/18 Range/Units 11:44 RBC (4.30-5.90) m/uL Hgb (13.0-17.5) gm/dL Hct (39.0-53.0) % Chloride (98-107) mmol/L Carbon Dioxide (22-30) mmol/L BUN (9-20) mg/dL Creatinine (0.66-1.25) mg/dL Glucose (74-99) mg/dL POC Glucose (mg/dL) 146 H (75-99) mg/dL Calcium (8.4-10.2) mg/dL AST (17-59) U/L Creatine Kinase (55-170) U/L Total Protein (6.3-8.2) g/dL Albumin (3.5-5.0) g/dL HDL Cholesterol (40-60) mg/dL Microbiology - Last 24 Hours (Table) 04/09/18 19:51 Blood Culture - Preliminary Blood No Growth after 72 hours Assessment and Plan Plan: Assessment and plan #1 Altered mental status of unclear etiology found on floor by neighbors incontinent of urine and possible metabolic encephalopathy. #2 Atrial fibrillation with a rapid ventricular response, appears to be new for the patient. Unsure if it is chronic. #3 Bibasilar pneumonia, suspect aspiration. #4 Febrile illness secondary to above. #5 Urinary tract infection, culture pending. #6 Diabetes mellitus. #7 Hyperlipidemia. #8 Rhabdomyolysis. #9 Elevated troponins , possible non-Q-wave myocardial infarction, maximize medical therapy. #10 Acute renal failure Plan I'm cardiology's perspective, we'll continue with current medications at this time. DNP note has been reviewed, I agree with a documented findings and plan of care. Patient was seen and examined.
[2018-04-13 16:01] LABS: Glucose,Whole Blood 141 mg/dL (75-99)
[2018-04-13] MEDS ORDERED: FUROSEMIDE 10 MG/ML 4 ML VIAL IV STA (17:05)
--- NOTE | 2018-04-13 17:06 | P.PN ---
Subjective Progress Note Date: 04/13/18 Principal diagnosis: Altered mental status, metabolic encephalopathy, A. fib with RVR, aspiration pneumonia This is a pleasant 77-year-old gentleman who follows with the [facility] for his primary care needs. He has a history of diabetes mellitus and hyperlipidemia. He was brought here to the emergency room from [facility] after being evaluated for altered mental status and being found on the floor incontinent of urine by a neighbor. Workup there revealed atrial fibrillation with a rapid ventricular response, dehydration, basilar pneumonia, rhabdomyolysis and mild troponin elevation. Here in the emergency room asked x-ray did reveal bibasilar infiltrates. Computed tomography scan of the brain revealed cerebral atrophy and hydrocephalus but no acute intracranial abnormalities. Results revealed a white count of 9.1. Hemoglobin 13.0. Bicarb 18. Creatinine 1.55. Troponin 0.064, 0.085. Serum alcohol less than 10. Urine drug screen negative. Influenza screen negative. Urinalysis with moderate blood and WBCs. He is seen today in consultation on the selective care unit. He is currently awake and alert in no acute distress. He is somewhat confused as to why he was transferred here. He denies any chest pain currently. He denies any worsening shortness of breath. He does have a loose nonproductive cough. He is maintaining good O2 saturations in the mid 90s on room air. He's been afebrile. Hemodynamically stable. Follow-up labs reveal a WBC of 7.7. Hemoglobin 12.0. Creatinine 1.47. CK 409. Reevaluated today on 04/11/2018, patient remains confused, denies any complaints. Denies any headaches no blurred vision no dizziness. Denies any cough no wheezing no shortness of breath, no chest pain. No nausea no vomiting no abdominal pain. Patient tells me that he has no idea why he is in the hospital in the first place, and he should be discharged home. Labs noted a normal CBC. Normal electrolytes. Creatinine is 1.39. Admission creatinine was 1.55. On 04/12/2018 patient seen in follow-up. Patient is awake and alert, room air pulse ox is 95%, hemodynamically stable, no fever no chills, patient is afebrile. Blood culture and urine culture showed no growth. Lung sounds are positive for some crackles at the bases, no wheezes or rhonchi. Chest wall tenderness, symmetrical chest expansion. Patient had a modified barium swallow , and no penetration or aspiration was observed. Better coverage in the form of Zosyn. Nebulized bronchodilators,Symbicort. Patient is in A. fib, rate is better controlled, anticoagulated with Eliquis. On 04/13/2018 patient seen again in follow-up on selective care unit, he sitting up in the recliner, with a consultant in ergonomics and safety at the bedside, no distress, room air pulse ox is 96%, afebrile, hemodynamically stable. Lung sounds reveal a few bibasilar rales, patient has an ineffective cough, has sounds slightly congested, no fever or chills, blood and urine cultures showed no growth. Today 's chest x-ray has been reviewed with Dr. Pandey, and showed very low lung volumes limiting assessment of the lung bases, permanent bibasilar opacities could be related to extensive atelectasis versus pneumonic infiltrates or pleural effusions. We'll obtain a N-terminal BNP, which came back elevated at 7690, suggesting congestive heart failure. Patient remains on empiric antibiotics including Zosyn. Echocardiogram showed ejection fraction of 45-50% , with basal inferior wall hypokinesia. Patient continues to be in atrial fibrillation with PVCs, he is on Eliquis for anticoagulation, cardiology is following Objective - Vital Signs Vital signs: Vital Signs Temp 98.5 F 04/13/18 15:52 Pulse 69 04/13/18 15:52 Resp 20 04/13/18 15:52 BP 124/72 04/13/18 15:52 Pulse Ox 96 04/13/18 16:31 Intake & Output 04/12/18 04/13/18 04/13/18 18:59 06:59 18:59 Intake Total 0 322 200 Output Total 1450 Balance 0 -1128 200 Weight 84 kg Intake: Intake, IV Titration 100 Amount Piperacillin-Tazobactam 3 100 .375 gm In Sodium Chloride 0.9% 100 ml @ 25 mls/hr IVPB Q8H [facility] Rx#: [id number] Oral 0 222 200 Output: Urine 1450 Other: Voiding Method Indwelling Catheter Indwelling Catheter Indwelling Catheter # Voids 1 # Bowel Movements 2 - Exam Physical Exam: Revealed a 77-year-old white male in no distress. On room air. Head: Atraumatic normocephalic. HEENT:[Neck is supple.] [No neck masses.] [No thyromegaly.] [No JVD.] PERRLA, EOMI, dry mucous membranes. Chest: [Crackles at the bases, no rhonchi no wheezes. Diminished breath sound bilaterally. No chest wall tenderness. Symmetrical chest expansion..] Cardiac Exam: [Irregular irregular rhythm, normal S1 and S2, 2/6 systolic murmur throughout the precordium..] Abdomen: [Soft, nontender, no megaly, no rebound, no guarding, normal bowel sounds.] Extremities: [No clubbing, no edema, no cyanosis.] Neurological Exam: [Slightly confused otherwise No focal neurologic deficit. Skin: No rashes. Lymphatics: No lymphadenopathy.] - Labs CBC & Chem 7: 04/13/18 05:40 04/13/18 05:40 Labs: Abnormal Lab Results - Last 24 Hours (Table) 04/12/18 04/13/18 04/13/18 Range/Units 21:14 05:40 05:40 RBC 4.17 L (4.30-5.90) m/uL Hgb 12.6 L (13.0-17.5) gm/dL Hct 38.5 L (39.0-53.0) % Chloride 113 H (98-107) mmol/L Carbon Dioxide 17 L (22-30) mmol/L BUN 22 H (9-20) mg/dL Creatinine 1.33 H (0.66-1.25) mg/dL Glucose 170 H (74-99) mg/dL POC Glucose (mg/dL) 175 H (75-99) mg/dL Calcium 8.2 L (8.4-10.2) mg/dL AST 62 H (17-59) U/L Creatine Kinase 171 H (55-170) U/L Total Protein 4.9 L (6.3-8.2) g/dL Albumin 2.4 L (3.5-5.0) g/dL 04/13/18 04/13/18 04/13/18 Range/Units 06:05 11:44 15:59 RBC (4.30-5.90) m/uL Hgb (13.0-17.5) gm/dL Hct (39.0-53.0) % Chloride (98-107) mmol/L Carbon Dioxide (22-30) mmol/L BUN (9-20) mg/dL Creatinine (0.66-1.25) mg/dL Glucose (74-99) mg/dL POC Glucose (mg/dL) 202 H 146 H 141 H (75-99) mg/dL Calcium (8.4-10.2) mg/dL AST (17-59) U/L Creatine Kinase (55-170) U/L Total Protein (6.3-8.2) g/dL Albumin (3.5-5.0) g/dL Microbiology - Last 24 Hours (Table) 04/09/18 19:51 Blood Culture - Preliminary Blood No Growth after 72 hours Assessment and Plan Plan: #1 Altered mental status of unclear etiology found on floor by neighbors incontinent of urine and possible metabolic encephalopathy, improved #2 Atrial fibrillation with a rapid ventricular response, better controlled #3 Bibasilar pneumonia, possible aspiration hence we'll change antibiotics to Zosyn. #4 acute exacerbation of congestive heart failure with systolic dysfunction #5 Febrile illness secondary to above. #6 Urinary tract infection, culture pending. #7 Diabetes mellitus. #8 Hyperlipidemia. #9 Rhabdomyolysis. #10 Elevated troponins. #11 Acute renal failure Plan: Today's chest x-ray has been reviewed, showed a very low lung volumes limiting assessment of the lung bases, showed prominent bibasilar opacities that could relate to Celexa since, or pleural effusions, we added a proBNP which came back elevated at 7000, 690, suggesting congestive heart failure. Clinically patient denies any dyspnea, he is maintaining good oxygenation on room air, no chest pain, continue current antibiotic coverage, his renal profile is improving, his mentation is improving. Decrease IV fluids to KVO. The patient will get a dose of IV Lasix I performed a history & physical examination of the patient and discussed their management with my nurse practitioner, Brianna Williamson. I reviewed the nurse practitioner's note and agree with the documented findings and plan of care. Lung sounds are positive for diminished with bibasilar crackles. The findings and the impression was discussed with the patient. I attest to the documentation by the nurse practitioner. Time with Patient: Less than 30
[2018-04-13] MEDS: diphenhydrAMINE 25 MG CAP PO PRN (20:48)
[2018-04-13] MEDS: ACETAMINOPHEN TAB 325 MG TAB PO PRN (20:48)
[2018-04-13] MEDS: ATORVASTATIN 20 MG TAB PO SCH (20:48)
[2018-04-13 21:00] LABS: Glucose,Whole Blood 185 mg/dL (75-99)
[2018-04-14] MEDS: PIPERACILLIN-TAZOBACTAM 3.375 GM in SODIUM CHLORIDE 0.9% 100 ML IVPB SCH ×3 (06:00→20:59)
[2018-04-14 06:28] LABS: Glucose,Whole Blood 210 mg/dL (75-99)
[2018-04-14] MEDS: PANTOPRAZOLE 40 MG TABLET PO SCH (06:36)
[2018-04-14] MEDS: metFORMIN 500 MG TAB PO SCH ×2 (06:36→17:17)
[2018-04-14] MEDS: INSULIN ASPART 100 UNIT/ML 1 ML 10 ML VIAL SQ SCH ×4 (06:36→21:04)
[2018-04-14 06:49] LABS: Albumin 2.7 g/dL (3.5-5.0); Calcium 8.4 mg/dL (8.4-10.2); Potassium 4.2 mmol/L (3.5-5.1); Total Bilirubin 0.7 mg/dL (0.2-1.3); Total Protein 5.3 g/dL (6.3-8.2)
[2018-04-14 07:49] LABS: Basophils # (A) 0.1 k/uL (0-0.2); Basophils % (A) 1 %; Eosinophils # (A) 0.4 k/uL (0-0.7); Eosinophils % (A) 5 %; HCT 41.3 % (39.0-53.0); HGB 13.6 gm/dL (13.0-17.5); Lymphocytes # (A) 1.5 k/uL (1.0-4.8); Lymphocytes % (A) 19 %; MCH 30.4 pg (25.0-35.0); MCHC 32.9 g/dL (31.0-37.0); MCV 92.2 fL (80.0-100.0); Mean Platelet Volume 8.1; Monocytes # (A) 0.6 k/uL (0-1.0); Monocytes % (A) 7 %; Neutrophils # (A) 5.4 k/uL (1.3-7.7); Neutrophils % (A) 66 %; Platelet Count 256 k/uL (150-450); RBC 4.48 m/uL (4.30-5.90); RDW 14.4 % (11.5-15.5); WBC 8.1 k/uL (3.8-10.6)
[2018-04-14] MEDS: IPRATROPIUM-ALBUTEROL 3 ML NEB INHALATION SCH ×3 (08:33→19:32)
[2018-04-14] MEDS: SYMBICORT 160-4.5 MCG INHALER INHALATION SCH ×2 (08:33→19:32)
[2018-04-14] MEDS: NICOTINE 14MG/24HR PATCH TRANSDERM SCH ×2 (08:46→08:50)
[2018-04-14] MEDS: ASPIRIN 81 MG PO SCH (08:46)
[2018-04-14] MEDS: METOPROLOL TARTRATE 25 MG TAB PO SCH ×2 (08:46→20:59)
[2018-04-14] MEDS: APIXABAN 2.5 MG TABLET PO SCH ×2 (08:47→20:59)
[2018-04-14] MEDS: SODIUM CHLORIDE 0.9% 1,000 ML IV SCH (08:52)
[2018-04-14 11:33] LABS: Glucose,Whole Blood 219 mg/dL (75-99)
[2018-04-14] MEDS: SILVER sulfADIAZINE Cream 400 GM 1 APPLIC APPLIC TOPICAL SCH (12:28)
[2018-04-14] MEDS: THIAMINE 100 MG TAB PO SCH ×2 (12:29→17:17)
[2018-04-14] MEDS: MULTIVITAMINS, THERA 1 EACH TAB PO SCH (12:29)
--- NOTE | 2018-04-14 12:39 | P.CN ---
Psychiatric Consult - . Consult date: 04/14/18 Consult:: 04/13/18 15:02 Suicidal ideation: Patient is not ambulating well and voiced suicidal ideation to PT/OT staff. Plan is pending POA activation?. 04/13/18 15:06 04/13/18 15:07 Assessment and Plan Assessment: This is a 76-year-old male was transferred here from [facility] for further evaluation. He was brought by EMS to that facility earlier today after being found sitting in a chair over his left previous stay by a neighbor. Prior to that he been found on the floor and helped out of the chair. He was incontinent of urine. He was brought into the emergency department at [facility] found have atrial fibrillation with a rapid ventricular response dehydration evidence of pneumonia with elevated lactic acid. Also rhabdomyolysis some mild troponin elevation. Patient himself complains no chest pain is this time he has had a slight cough. He was brought in by EMS was given IV fluids. He does appear to be more responsive. MD Complaint: altered mental status, other When asked why he was here he said he had difficulty understanding how he got from [facility] to year and explained and he seemed to understand it better. He does admit to not having a very clean house it was his mother's a friend and she and he really doesn't care for the A frame - Related Data Home Medications Medication Instructions Recorded Confirmed Atorvastatin [Lipitor] 40 mg PO DAILY 02/06/17 04/09/18 metFORMIN HCL [Glucophage] 500 mg PO BID 02/06/17 02/06/17 Allergies Allergy/AdvReac Type Severity Reaction Status Date / Time No Known Allergies Allergy Verified 04/09/18 17:57 Past Medical History Past Medical History: Diabetes Mellitus, Hypertension History of Any Multi-Drug Resistant Organisms: None Reported Past Surgical History: No Surgical Hx Reported Past Psychological History: No Psychological Hx Reported Smoking Status: Never smoker Past Alcohol Use History: None Reported Past Drug Use History: None Reported Mental Status Examination - General Appearance: [ casual, appears older than stated age] Speech/Language: [spontaneous, slow,soft] Attitude/Behavior: [cooperative Mood: [euthymic Affect: [full range Orientation: [time, person, place situation] Thought Content: [wnl, denies delusions, obsessions, phobias, other] Risk Factors: [Denies suicidal (ideations, plan), and/or Homicidal (ideations, plan), other] Perception: [wnl, denies hallucinations (auditory, visual, tactile), other] Thought Processes: [goal-oriented Concentration/Attention Span: [wnl] [Per observation and interview with the patient] Recent Memory: [wnl, 2 out of 3 in 3 minutes] Remote Memory: [wnl, ] [past events, as related history] Intelligence: [below average] [based on history, based on vocabulary, syntax, grammar, and content] Judgement: [ fair] [per patient's behavior/history of present illness] Insight: [ poor] [understanding severity of illness/history of present illness] 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 Mild dementia that he has a capacity to make decisions at times. He would benefit from outpatient neuropsych testing and MRI further determination of the cerebrovascular disease. However Needs guardian and/or verbal power of tests superintendent to be activated #2 Atrial fibrillation with a rapid ventricular response. #3 Bibasilar pneumonia, suspect aspiration. #4 Febrile illness secondary to above. #5 Urinary tract infection, culture pending. #6 Diabetes mellitus. #7 Hyperlipidemia. #8 Rhabdomyolysis. #9 Elevated troponins. #10 Acute renal failure Time with Patient: Less than 30
--- NOTE | 2018-04-14 14:23 | P.PN ---
Subjective Progress Note Date: 04/13/18 Principal diagnosis: Altered mental status, metabolic encephalopathy, A. fib with RVR, aspiration pneumonia Patient is a 77-year-old male was transferred from [facility] due to altered mental status and found on the floor incontinent of urine by his neighbor. Patient was found have A. fib with RVR, bibasilar pneumonia rhabdomyolysis and mild troponin elevation. Patient was seen by cardiology and pulmonary. 04/13/2018 Patient is currently sitting in a chair comfortably but seems to be not coherent. Patient says that he lives with his mother at home. Patient does have underlying mild dementia. Denied any complaints of chest pain. No worsening shortness of breath. No fever no chills. Chest x-ray showed very low lung volumes limiting assessment of the lung bases and heart size. Prominent bibasilar pastries. Correlate for extensive atelectasis versus infectious aspiration pneumonitis. -proBNP is 7690. Echocardiogram for ejection fraction of 45-50% with basilar inferior wall hypokinesia. Patient continues to be in atrial fibrillation. Currently on anticoagulation with Eliquis. Currently on device no cough Zosyn. Patient was seen by psychiatric to evaluate for decision making capacity. Patient does have poor duration making capacity. We will need guardianship. Current medications reviewed. Objective - Vital Signs Vital signs: Vital Signs Temp 98.5 F 04/13/18 15:52 Pulse 69 04/13/18 15:52 Resp 20 04/13/18 15:52 BP 124/72 04/13/18 15:52 Pulse Ox 96 04/13/18 16:31 Intake & Output 04/12/18 04/13/18 04/13/18 18:59 06:59 18:59 Intake Total 0 322 200 Output Total 1450 Balance 0 -1128 200 Weight 84 kg Intake: Intake, IV Titration 100 Amount Piperacillin-Tazobactam 3 100 .375 gm In Sodium Chloride 0.9% 100 ml @ 25 mls/hr IVPB Q8H [facility] Rx#: [id number] Oral 0 222 200 Output: Urine 1450 Other: Voiding Method Indwelling Catheter Indwelling Catheter Indwelling Catheter # Voids 1 # Bowel Movements 2 - Exam PHYSICAL EXAMINATION: Patient is lying in the bed comfortably, no acute distress, awake alert and oriented.. HEENT: Normocephalic. Neck is supple. Pupils reactive. Nostrils clear. Oral cavity is moist. Ears reveal no drainage. Neck reveals no JVD, carotid bruits, or thyromegaly. CHEST EXAMINATION: Trachea is central. Symmetrical expansion. Bibasilar coarse breath sounds and crackles. CARDIAC: Normal S1, S2 with no gallops. No murmurs ABDOMEN: Soft. Bowel sounds normal. No organomegaly. No abdominal bruits. Extremities: reveal no edema. No clubbing or cyanosis Neurologically awake, alert, oriented x2-3 with well-coordinated movements. No focal deficits noted Skin: No rash or skin lesions. Psychiatric: Coperative. Nonsuicidal Musculoskeletal: No joint swelling or deformity. Normal range of motion. - Labs CBC & Chem 7: 04/14/18 05:53 04/14/18 05:53 Labs: Abnormal Lab Results - Last 24 Hours (Table) 04/12/18 04/13/18 04/13/18 Range/Units 21:14 05:40 05:40 RBC 4.17 L (4.30-5.90) m/uL Hgb 12.6 L (13.0-17.5) gm/dL Hct 38.5 L (39.0-53.0) % Chloride 113 H (98-107) mmol/L Carbon Dioxide 17 L (22-30) mmol/L BUN 22 H (9-20) mg/dL Creatinine 1.33 H (0.66-1.25) mg/dL Glucose 170 H (74-99) mg/dL POC Glucose (mg/dL) 175 H (75-99) mg/dL Calcium 8.2 L (8.4-10.2) mg/dL AST 62 H (17-59) U/L Creatine Kinase 171 H (55-170) U/L Total Protein 4.9 L (6.3-8.2) g/dL Albumin 2.4 L (3.5-5.0) g/dL 04/13/18 04/13/18 04/13/18 Range/Units 06:05 11:44 15:59 RBC (4.30-5.90) m/uL Hgb (13.0-17.5) gm/dL Hct (39.0-53.0) % Chloride (98-107) mmol/L Carbon Dioxide (22-30) mmol/L BUN (9-20) mg/dL Creatinine (0.66-1.25) mg/dL Glucose (74-99) mg/dL POC Glucose (mg/dL) 202 H 146 H 141 H (75-99) mg/dL Calcium (8.4-10.2) mg/dL AST (17-59) U/L Creatine Kinase (55-170) U/L Total Protein (6.3-8.2) g/dL Albumin (3.5-5.0) g/dL Microbiology - Last 24 Hours (Table) 04/09/18 19:51 Blood Culture - Preliminary Blood No Growth after 72 hours Assessment and Plan Assessment: Altered mental status. Possible metabolic encephalopathy. Improved new-onset atrial fibrillation with rapid ventricular rate Acute CHF with mild reduced ejection fraction 45-50% Bibasilar pneumonia possible aspiration. Possible UTI. Urine culture showed no growth. Diabetes type 2 Hyperlipidemia Dementia elevated lactic acid level Elevated troponin level 0.085 indeterminate Acute on chronic disease stage III Gait dysfunction Extensive dry skin on lower extremities CODE STATUS is DO NOT RESUSCITATE/DO NOT INTUBATE Plan: patient will be continued on antibiotics in the form of Zosyn. Continue with IV Solu-Medrol and breathing treatments. Patient will be started on Lasix. Continue with oxygen therapy. Otherwise continue the current management. Pulmonary and cardiology is following. Further recommendations based on the clinical course. Prognosis is guarded. Time with Patient: Greater than 30
--- NOTE | 2018-04-14 14:46 | P.PN ---
Subjective Progress Note Date: 04/14/18 This is a pleasant 77-year-old gentleman [facility]. He has a history of diabetes mellitus and hyperlipidemia. He was brought here to the emergency room from [facility] after being evaluated for altered mental status and being found on the floor incontinent of urine by a neighbor. Workup there revealed atrial fibrillation with a rapid ventricular response, dehydration, basilar pneumonia, rhabdomyolysis and mild troponin elevation. Here in the emergency room asked x-ray did reveal bibasilar infiltrates. Computed tomography scan of the brain revealed cerebral atrophy and hydrocephalus but no acute intracranial abnormalities. Results revealed a white count of 9.1. Hemoglobin 13.0. Bicarb 18. Creatinine 1.55. Troponin 0.064, 0.085. Serum alcohol less than 10. Urine drug screen negative. Influenza screen negative. Urinalysis with moderate blood and WBCs. He is seen today in consultation on the selective care unit. He is currently awake and alert in no acute distress. He is somewhat confused as to why he was transferred here. He denies any chest pain currently. He denies any worsening shortness of breath. He does have a loose nonproductive cough. He is maintaining good O2 saturations in the mid 90s on room air. He's been afebrile. Hemodynamically stable. Follow-up labs reveal a WBC of 7.7. Hemoglobin 12.0. Creatinine 1.47. CK 409. 04/12/2018 Patient seen and examined this morning, denies any chest pain, no difficulty in breathing, no dizziness or lightheadedness. He denies any cough. Patient is still unsure exactly of why he is in the hospital. Continues to be in atrial fibrillation with PVCs. Blood pressure 136/70, in the 80s. White blood cell count 7.0, hemoglobin 12.1, platelet count 218. Sodium 140, potassium 4.0, BUN 17, creatinine 1.2. Echo shows ejection fraction of 45-50%, basal inferior wall hypokinesia. 04/13/2018 Patient seen and examined this morning, blood pressure 112/60 with a heart rate in the 80s. White blood cell count 4.1, hemoglobin 12.6, platelet count 223. Sodium 138, potassium 4.2, BUN 22, creatinine 1.3. Repeat chest x-ray from today reveals a very low lung volumes limiting assessment of the lung bases and heart size. Prominent bibasilar opacities. Correlate for extensive atelectasis versus infectious or aspiration pneumonitis. 04/14/2018 Patient seen and examined this morning, blood pressure 118/68 with a heart rate in the 70s. White blood cell count 8.1, hemoglobin 13.6, platelet count 256. Sodium 136, potassium 4.2, BUN 27, creatinine 1.7. Objective - Vital Signs Vital signs: Vital Signs Temp 98.2 F 04/14/18 12:00 Pulse 65 04/14/18 13:43 Resp 20 04/14/18 12:00 BP 118/68 04/14/18 12:00 Pulse Ox 92 L 04/14/18 12:00 Intake & Output 04/13/18 04/14/18 04/14/18 18:59 06:59 18:59 Intake Total 200 720 Output Total 4900 1100 Balance 200 -4900 -380 Weight 83 kg Intake: Oral 200 720 Output: Urine 4900 1100 Other: Voiding Method Indwelling Catheter Indwelling Catheter Indwelling Catheter # Voids 1 # Bowel Movements 2 - Exam Physical Exam: Revealed a 77-year-old white male in no distress. On room air. Head: Atraumatic normocephalic. HEENT:Neck is supple.No neck masses.No thyromegaly.No JVD. PERRLA, EOMI, dry mucous membranes. Chest: Crackles at the bases, no rhonchi no wheezes. Diminished breath sound bilaterally. No chest wall tenderness. Symmetrical chest expansion. Cardiac Exam: [Irregular irregular rhythm, normal S1 and S2, 2/6 systolic murmur throughout the precordium. Abdomen: Soft, nontender, no megaly, no rebound, no guarding, normal bowel sounds. Extremities: No clubbing, no edema, no cyanosis. Neurological Exam: Slightly confused otherwise No focal neurologic deficit. Skin: No rashes. Lymphatics: No lymphadenopathy. - Labs CBC & Chem 7: 04/14/18 05:53 04/14/18 05:53 Labs: Abnormal Lab Results - Last 24 Hours (Table) 04/13/18 04/13/18 04/14/18 Range/Units 15:59 20:34 05:53 Sodium 136 L (137-145) mmol/L Chloride 108 H (98-107) mmol/L Carbon Dioxide 20 L (22-30) mmol/L BUN 27 H (9-20) mg/dL Creatinine 1.76 H (0.66-1.25) mg/dL Glucose 228 H (74-99) mg/dL POC Glucose (mg/dL) 141 H 185 H (75-99) mg/dL Creatine Kinase 367 H (55-170) U/L Total Protein 5.3 L (6.3-8.2) g/dL Albumin 2.7 L (3.5-5.0) g/dL 04/14/18 04/14/18 Range/Units 06:11 11:28 Sodium (137-145) mmol/L Chloride (98-107) mmol/L Carbon Dioxide (22-30) mmol/L BUN (9-20) mg/dL Creatinine (0.66-1.25) mg/dL Glucose (74-99) mg/dL POC Glucose (mg/dL) 210 H 219 H (75-99) mg/dL Creatine Kinase (55-170) U/L Total Protein (6.3-8.2) g/dL Albumin (3.5-5.0) g/dL Microbiology - Last 24 Hours (Table) 04/09/18 19:51 Blood Culture - Preliminary Blood No Growth after 96 hours Assessment and Plan Plan: Assessment and plan #1 Altered mental status of unclear etiology found on floor by neighbors incontinent of urine and possible metabolic encephalopathy. #2 Atrial fibrillation with a rapid ventricular response, appears to be new for the patient. Unsure if it is chronic. #3 Bibasilar pneumonia, suspect aspiration. #4 Febrile illness secondary to above. #5 Urinary tract infection, culture pending. #6 Diabetes mellitus. #7 Hyperlipidemia. #8 Rhabdomyolysis. #9 Elevated troponins , possible non-Q-wave myocardial infarction, maximize medical therapy. #10 Acute renal failure Plan I'm cardiology's perspective, we'll continue with current medications at this time. We'll follow this patient along with you now on an as-needed basis only, please don't hesitate to call with any questions. DNP note has been reviewed, I agree with a documented findings and plan of care. Patient was seen and examined.
--- NOTE | 2018-04-14 15:28 | P.PN ---
Subjective Progress Note Date: 04/14/18 Principal diagnosis: Altered mental status, metabolic encephalopathy, A. fib with RVR, aspiration pneumonia This is a pleasant 77-year-old gentleman who follows with the [facility] for his primary care needs. He has a history of diabetes mellitus and hyperlipidemia. He was brought here to the emergency room from [facility] after being evaluated for altered mental status and being found on the floor incontinent of urine by a neighbor. Workup there revealed atrial fibrillation with a rapid ventricular response, dehydration, basilar pneumonia, rhabdomyolysis and mild troponin elevation. Here in the emergency room asked x-ray did reveal bibasilar infiltrates. Computed tomography scan of the brain revealed cerebral atrophy and hydrocephalus but no acute intracranial abnormalities. Results revealed a white count of 9.1. Hemoglobin 13.0. Bicarb 18. Creatinine 1.55. Troponin 0.064, 0.085. Serum alcohol less than 10. Urine drug screen negative. Influenza screen negative. Urinalysis with moderate blood and WBCs. He is seen today in consultation on the selective care unit. He is currently awake and alert in no acute distress. He is somewhat confused as to why he was transferred here. He denies any chest pain currently. He denies any worsening shortness of breath. He does have a loose nonproductive cough. He is maintaining good O2 saturations in the mid 90s on room air. He's been afebrile. Hemodynamically stable. Follow-up labs reveal a WBC of 7.7. Hemoglobin 12.0. Creatinine 1.47. CK 409. Reevaluated today on 04/11/2018, patient remains confused, denies any complaints. Denies any headaches no blurred vision no dizziness. Denies any cough no wheezing no shortness of breath, no chest pain. No nausea no vomiting no abdominal pain. Patient tells me that he has no idea why he is in the hospital in the first place, and he should be discharged home. Labs noted a normal CBC. Normal electrolytes. Creatinine is 1.39. Admission creatinine was 1.55. On 04/12/2018 patient seen in follow-up. Patient is awake and alert, room air pulse ox is 95%, hemodynamically stable, no fever no chills, patient is afebrile. Blood culture and urine culture showed no growth. Lung sounds are positive for some crackles at the bases, no wheezes or rhonchi. Chest wall tenderness, symmetrical chest expansion. Patient had a modified barium swallow , and no penetration or aspiration was observed. Better coverage in the form of Zosyn. Nebulized bronchodilators,Symbicort. Patient is in A. fib, rate is better controlled, anticoagulated with Eliquis. On 04/13/2018 patient seen again in follow-up on selective care unit, he sitting up in the recliner, with a process safety manager at the bedside, no distress, room air pulse ox is 96%, afebrile, hemodynamically stable. Lung sounds reveal a few bibasilar rales, patient has an ineffective cough, has sounds slightly congested, no fever or chills, blood and urine cultures showed no growth. Today 's chest x-ray has been reviewed with Dr. Pandey, and showed very low lung volumes limiting assessment of the lung bases, permanent bibasilar opacities could be related to extensive atelectasis versus pneumonic infiltrates or pleural effusions. We'll obtain a N-terminal BNP, which came back elevated at 7690, suggesting congestive heart failure. Patient remains on empiric antibiotics including Zosyn. Echocardiogram showed ejection fraction of 45-50% , with basal inferior wall hypokinesia. Patient continues to be in atrial fibrillation with PVCs, he is on Eliquis for anticoagulation, cardiology is following very The patient is seen again today 04/14/2017 in follow-up on the selective care unit. He is currently sitting up in a chair at the bedside. He is awake and alert in no acute distress. He is currently maintaining O2 saturations in the low 90s on room air. Afebrile. Hemodynamically stable. Blood culture reveals no growth. Urine culture reveals no growth. White count 8.1. Hemoglobin 13.6. Creatinine 1.76. He remains on bronchodilators, Symbicort, Zosyn. Anticoagulated with Eliquis. Objective - Vital Signs Vital signs: Vital Signs Temp 98.2 F 04/14/18 12:00 Pulse 65 04/14/18 13:43 Resp 20 04/14/18 12:00 BP 118/68 04/14/18 12:00 Pulse Ox 92 L 04/14/18 12:00 Intake & Output 04/13/18 04/14/18 04/14/18 18:59 06:59 18:59 Intake Total 200 720 Output Total 4900 1100 Balance 200 -4900 -380 Weight 83 kg Intake: Oral 200 720 Output: Urine 4900 1100 Other: Voiding Method Indwelling Catheter Indwelling Catheter Indwelling Catheter # Voids 1 # Bowel Movements 2 - Exam GENERAL EXAM: Alert, active, comfortable in no apparent distress. Disheveled. On room air. HEAD: Normocephalic. EYES: Normal reaction of pupils, equal size. NOSE: Clear with pink turbinates. THROAT: No erythema or exudates. NECK: No masses, no JVD. CHEST: No chest wall deformity. LUNGS: Equal air entry with end expiratory wheeze, few scattered rhonchi. CVS: S1 and S2 normal with an systolic audible murmur, regular rhythm. ABDOMEN: No hepatosplenomegaly, normal bowel sounds, no guarding or rigidity. SPINE: No scoliosis or deformity SKIN: No rashes CENTRAL NERVOUS SYSTEM: No focal deficits, tone is normal in all 4 extremities. EXTREMITIES: There is no peripheral edema. No clubbing, no cyanosis. Peripheral pulses are intact. - Labs CBC & Chem 7: 04/14/18 05:53 04/14/18 05:53 Labs: Abnormal Lab Results - Last 24 Hours (Table) 04/13/18 04/13/18 04/14/18 Range/Units 15:59 20:34 05:53 Sodium 136 L (137-145) mmol/L Chloride 108 H (98-107) mmol/L Carbon Dioxide 20 L (22-30) mmol/L BUN 27 H (9-20) mg/dL Creatinine 1.76 H (0.66-1.25) mg/dL Glucose 228 H (74-99) mg/dL POC Glucose (mg/dL) 141 H 185 H (75-99) mg/dL Creatine Kinase 367 H (55-170) U/L Total Protein 5.3 L (6.3-8.2) g/dL Albumin 2.7 L (3.5-5.0) g/dL 04/14/18 04/14/18 Range/Units 06:11 11:28 Sodium (137-145) mmol/L Chloride (98-107) mmol/L Carbon Dioxide (22-30) mmol/L BUN (9-20) mg/dL Creatinine (0.66-1.25) mg/dL Glucose (74-99) mg/dL POC Glucose (mg/dL) 210 H 219 H (75-99) mg/dL Creatine Kinase (55-170) U/L Total Protein (6.3-8.2) g/dL Albumin (3.5-5.0) g/dL Microbiology - Last 24 Hours (Table) 04/09/18 19:51 Blood Culture - Preliminary Blood No Growth after 96 hours Assessment and Plan Assessment: Impression: #1 Altered mental status of unclear etiology found on floor by neighbors incontinent of urine and possible metabolic encephalopathy. Currently awake and alert. #2 Atrial fibrillation with a rapid ventricular response. Currently rate controlled. Anticoagulated on Eliquis. #3 Bibasilar pneumonia, suspect aspiration. Improved and on room air. #4 Febrile illness secondary to above. Recovered. #5 Urinary tract infection, culture negative. #6 Diabetes mellitus. #7 Hyperlipidemia. #8 Rhabdomyolysis. #9 Elevated troponins. #10 Acute renal failure #11 Chronic tobacco dependence. On Habitrol. Plan: The patient was seen and evaluated by Dr. Fu. He is currently stable from the pulmonary standpoint. Continue O2 saturations in the low 90s on room air. I, the cosigning physician, performed a history & physical examination of the patient. Lungs sounds bilateral scattered rhonchi. Maintaining good O2 saturations in the 90s on room air. I discussed the assessment and plan of care with my nurse practitioner, Jazz Phoenix. I attest to the above note as dictated by her.
[2018-04-14 17:11] LABS: Glucose,Whole Blood 154 mg/dL (75-99)
[2018-04-14] MEDS: ATORVASTATIN 20 MG TAB PO SCH (20:59)
[2018-04-14 21:04] LABS: Glucose,Whole Blood 189 mg/dL (75-99)
[2018-04-15] MEDS: PIPERACILLIN-TAZOBACTAM 3.375 GM in SODIUM CHLORIDE 0.9% 100 ML IVPB SCH ×3 (05:00→22:00)
[2018-04-15 06:05] LABS: Glucose,Whole Blood 257 mg/dL (75-99)
[2018-04-15] MEDS: INSULIN ASPART 100 UNIT/ML 1 ML 10 ML VIAL SQ SCH ×4 (06:33→22:02)
[2018-04-15] MEDS: PANTOPRAZOLE 40 MG TABLET PO SCH (06:33)
[2018-04-15] MEDS: metFORMIN 500 MG TAB PO SCH ×2 (06:33→17:37)
[2018-04-15 07:24] LABS: Basophils % (A) 1 %; Eosinophils # (A) 0.3 k/uL (0-0.7); Eosinophils % (A) 4 %; HGB 13.2 gm/dL (13.0-17.5); Lymphocytes # (A) 1.4 k/uL (1.0-4.8); Lymphocytes % (A) 17 %; MCH 30.3 pg (25.0-35.0); MCHC 32.9 g/dL (31.0-37.0); MCV 92.1 fL (80.0-100.0); Monocytes # (A) 0.5 k/uL (0-1.0); Monocytes % (A) 6 %; Neutrophils # (A) 6.1 k/uL (1.3-7.7); Neutrophils % (A) 72 %; Platelet Count 259 k/uL (150-450); RBC 4.35 m/uL (4.30-5.90); RDW 14.3 % (11.5-15.5); WBC 8.5 k/uL (3.8-10.6)
[2018-04-15] MEDS: IPRATROPIUM-ALBUTEROL 3 ML NEB INHALATION SCH ×3 (07:29→20:23)
[2018-04-15] MEDS: SYMBICORT 160-4.5 MCG INHALER INHALATION SCH ×2 (07:29→20:23)
[2018-04-15 07:38] LABS: Albumin 2.6 g/dL (3.5-5.0); Calcium 8.4 mg/dL (8.4-10.2); Potassium 4.4 mmol/L (3.5-5.1); Total Bilirubin 0.6 mg/dL (0.2-1.3); Total Protein 5.2 g/dL (6.3-8.2)
[2018-04-15] MEDS: APIXABAN 2.5 MG TABLET PO SCH ×2 (08:41→22:01)
[2018-04-15] MEDS: METOPROLOL TARTRATE 25 MG TAB PO SCH ×2 (08:41→22:02)
[2018-04-15] MEDS: ASPIRIN 81 MG PO SCH (08:41)
[2018-04-15] MEDS: NICOTINE 14MG/24HR PATCH TRANSDERM SCH (08:42)
[2018-04-15] MEDS: SILVER sulfADIAZINE Cream 400 GM 1 APPLIC APPLIC TOPICAL SCH (08:43)
[2018-04-15 12:03] LABS: Glucose,Whole Blood 194 mg/dL (75-99)
[2018-04-15] MEDS: THIAMINE 100 MG TAB PO SCH ×2 (12:35→17:37)
[2018-04-15] MEDS: MULTIVITAMINS, THERA 1 EACH TAB PO SCH (12:41)
--- NOTE | 2018-04-15 14:29 | CDI ---
Documentation Clarification Form Date: 04/15/2018 2:20:31 PM From: Tammy Fields CCS, CCDS Admit Date: 04/09/2018 7:48:00 PM Patient Name: Juan Vasquez Visit Number: [id number] Discharge Date: 04/19/2018 17:37 PM ATTENTION: The Clinical Documentation Specialists (CDI) and [facility] Coding Staff appreciate your assistance in clarifying documentation. Please respond to the clarification below the line at the bottom and electronically sign. The CDI & [facility] Coding staff will review the response and follow-up if needed. Please note: Queries are made part of the Legal Health Record. If you have any questions, please contact the author of this message via ITS. Dr. Yesica Valdovinos: Atrial Fibrillation is documented in the ED note, the History & Physical and cardiology was consulted for possible new onset of atrial fibrillation. History/Risk Factors: Hypertension, DM II. Clinical Indicators: Patient was found by neighbors, taken to [facility] for evaluation, found to be in A fib w/RVR, dehydration w/evidence of pneumonia and was incontinent of urine. EKG: Atrial fibrillation with moderate RVR Heart rate: 118 - 121 - 88 - 58 - 64 Treatment: Telemetry, IV fluid bolus, albuterol INH, IV Ativan, IM Thiamine Hcl , Consults: Pulmonary & cardiology In your professional opinion, can you please clarify the type of Atrial Fibrillation, if known? Paroxysmal Persistent Other, please specify Unable to determine (Last Revision: July 2017) MTDD
[2018-04-15 15:18] VITALS: BMI 23.4
--- NOTE | 2018-04-15 15:31 | P.PN ---
Subjective Progress Note Date: 04/15/18 Principal diagnosis: Altered mental status, metabolic encephalopathy, A. fib with RVR, aspiration pneumonia This is a pleasant 77-year-old gentleman who follows with the [facility] for his primary care needs. He has a history of diabetes mellitus and hyperlipidemia. He was brought here to the emergency room from [facility] after being evaluated for altered mental status and being found on the floor incontinent of urine by a neighbor. Workup there revealed atrial fibrillation with a rapid ventricular response, dehydration, basilar pneumonia, rhabdomyolysis and mild troponin elevation. Here in the emergency room asked x-ray did reveal bibasilar infiltrates. Computed tomography scan of the brain revealed cerebral atrophy and hydrocephalus but no acute intracranial abnormalities. Results revealed a white count of 9.1. Hemoglobin 13.0. Bicarb 18. Creatinine 1.55. Troponin 0.064, 0.085. Serum alcohol less than 10. Urine drug screen negative. Influenza screen negative. Urinalysis with moderate blood and WBCs. He is seen today in consultation on the selective care unit. He is currently awake and alert in no acute distress. He is somewhat confused as to why he was transferred here. He denies any chest pain currently. He denies any worsening shortness of breath. He does have a loose nonproductive cough. He is maintaining good O2 saturations in the mid 90s on room air. He's been afebrile. Hemodynamically stable. Follow-up labs reveal a WBC of 7.7. Hemoglobin 12.0. Creatinine 1.47. CK 409. Reevaluated today on 04/11/2018, patient remains confused, denies any complaints. Denies any headaches no blurred vision no dizziness. Denies any cough no wheezing no shortness of breath, no chest pain. No nausea no vomiting no abdominal pain. Patient tells me that he has no idea why he is in the hospital in the first place, and he should be discharged home. Labs noted a normal CBC. Normal electrolytes. Creatinine is 1.39. Admission creatinine was 1.55. On 04/12/2018 patient seen in follow-up. Patient is awake and alert, room air pulse ox is 95%, hemodynamically stable, no fever no chills, patient is afebrile. Blood culture and urine culture showed no growth. Lung sounds are positive for some crackles at the bases, no wheezes or rhonchi. Chest wall tenderness, symmetrical chest expansion. Patient had a modified barium swallow , and no penetration or aspiration was observed. Better coverage in the form of Zosyn. Nebulized bronchodilators,Symbicort. Patient is in A. fib, rate is better controlled, anticoagulated with Eliquis. On 04/13/2018 patient seen again in follow-up on selective care unit, he sitting up in the recliner, with a manager environmental health and safety at the bedside, no distress, room air pulse ox is 96%, afebrile, hemodynamically stable. Lung sounds reveal a few bibasilar rales, patient has an ineffective cough, has sounds slightly congested, no fever or chills, blood and urine cultures showed no growth. Today 's chest x-ray has been reviewed with Dr. Pandey, and showed very low lung volumes limiting assessment of the lung bases, permanent bibasilar opacities could be related to extensive atelectasis versus pneumonic infiltrates or pleural effusions. We'll obtain a N-terminal BNP, which came back elevated at 7690, suggesting congestive heart failure. Patient remains on empiric antibiotics including Zosyn. Echocardiogram showed ejection fraction of 45-50% , with basal inferior wall hypokinesia. Patient continues to be in atrial fibrillation with PVCs, he is on Eliquis for anticoagulation, cardiology is following On 04/15/2018 patient seen in follow-up on [facility] care [facility], he is awake and alert, in no acute distress, he has been ambulating with assistance, tolerated activity very well, lung sounds are essentially clear to auscultation, no rhonchi or wheezing. Today's labs have been noted, CBC is essentially unremarkable, renal profile slightly improved. Room air pulse ox is 94%, afebrile, hemodynamically stable, no specific complaints, patient requested to go home today. From pulmonary perspective patient is stable for discharge home today. Blood and urine cultures were negative, acute events overnight. Apparently discharge home was held related to safety concerns, Adult Protective Services are involved in regards to poor living conditions and arrangements are currently in progress for emergency guardianship, pending psychiatric evaluation , and possible placement to ECF Objective - Vital Signs Vital signs: Vital Signs Temp 98.2 F 04/15/18 11:31 Pulse 64 04/15/18 12:59 Resp 20 04/15/18 11:31 BP 116/62 04/15/18 11:31 Pulse Ox 94 L 04/15/18 11:31 Intake & Output 04/14/18 04/15/18 04/15/18 18:59 06:59 18:59 Intake Total 720 100 780 Output Total 2100 750 Balance -1380 -650 780 Weight 80.5 kg 80.5 kg Intake: Intake, IV Titration 100 180 Amount Piperacillin-Tazobactam 3 100 100 .375 gm In Sodium Chloride 0.9% 100 ml @ 25 mls/hr IVPB Q8H [facility] Rx#: [id number] Sodium Chloride 0.9% 1, 80 000 ml @ 20 mls/hr IV . Q24H [facility] Rx#:[id number] Oral 720 600 Output: Urine 2100 750 Other: Voiding Method Indwelling Catheter Indwelling Catheter Indwelling Catheter - Exam Physical Exam: Revealed a 77-year-old white male in no distress. On room air. Head: Atraumatic normocephalic. HEENT:[Neck is supple.] [No neck masses.] [No thyromegaly.] [No JVD.] PERRLA, EOMI, dry mucous membranes. Chest: [Clear breath sounds, diminished at the bases, no rhonchi, rales or wheezes today] Cardiac Exam: [Irregular irregular rhythm, normal S1 and S2, 2/6 systolic murmur throughout the precordium..] Abdomen: [Soft, nontender, no megaly, no rebound, no guarding, normal bowel sounds.] Extremities: [No clubbing, no edema, no cyanosis.] Neurological Exam: [Slightly confused otherwise No focal neurologic deficit. Skin: No rashes. Lymphatics: No lymphadenopathy.] - Labs CBC & Chem 7: 04/15/18 06:47 04/15/18 06:47 Labs: Abnormal Lab Results - Last 24 Hours (Table) 04/14/18 04/14/18 04/15/18 Range/Units 16:45 21:02 06:04 Chloride (98-107) mmol/L BUN (9-20) mg/dL Creatinine (0.66-1.25) mg/dL Glucose (74-99) mg/dL POC Glucose (mg/dL) 154 H 189 H 257 H (75-99) mg/dL Total Protein (6.3-8.2) g/dL Albumin (3.5-5.0) g/dL 04/15/18 04/15/18 Range/Units 06:47 12:00 Chloride 109 H (98-107) mmol/L BUN 30 H (9-20) mg/dL Creatinine 1.67 H (0.66-1.25) mg/dL Glucose 241 H (74-99) mg/dL POC Glucose (mg/dL) 194 H (75-99) mg/dL Total Protein 5.2 L (6.3-8.2) g/dL Albumin 2.6 L (3.5-5.0) g/dL Microbiology - Last 24 Hours (Table) 04/09/18 19:51 Blood Culture - Preliminary Blood No Growth after 120 hours Assessment and Plan Plan: #1 Altered mental status of unclear etiology found on floor by neighbors incontinent of urine and possible metabolic encephalopathy, improved #2 Atrial fibrillation with a rapid ventricular response, better controlled #3 Bibasilar pneumonia, possible aspiration hence we'll change antibiotics to Zosyn. #4 acute exacerbation of congestive heart failure with systolic dysfunction #5 Febrile illness secondary to above. #6 Urinary tract infection, culture pending. #7 Diabetes mellitus. #8 Hyperlipidemia. #9 Rhabdomyolysis. #10 Elevated troponins. #11 Acute renal failure Plan: Patient is stable, breathing easier, he is maintaining good oxygenation on room air, tolerating ambulation. Cultures negative, no fever or chills, from pulmonary perspective patient is stable for discharge to ECF or home. We'll follow on as-needed basis I performed a history & physical examination of the patient and discussed their management with my nurse practitioner, Brianna Williamson. I reviewed the nurse practitioner's note and agree with the documented findings and plan of care. Lung sounds are positive for diminished breath sounds. The findings and the impression was discussed with the patient. I attest to the documentation by the nurse practitioner. Time with Patient: Less than 30
[2018-04-15 17:39] LABS: Glucose,Whole Blood 232 mg/dL (75-99)
[2018-04-15 20:37] LABS: Glucose,Whole Blood 208 mg/dL (75-99)
[2018-04-15] MEDS: ATORVASTATIN 20 MG TAB PO SCH (22:01)
--- NOTE | 2018-04-15 23:45 | P.PN ---
Subjective Progress Note Date: 04/14/18 Principal diagnosis: Altered mental status, metabolic encephalopathy, A. fib with RVR, aspiration pneumonia Patient is a 77-year-old male was transferred from [facility] due to altered mental status and found on the floor incontinent of urine by his neighbor. Patient was found have A. fib with RVR, bibasilar pneumonia rhabdomyolysis and mild troponin elevation. Patient was seen by cardiology and pulmonary. 04/13/2018 Patient is currently sitting in a chair comfortably but seems to be not coherent. Patient says that he lives with his mother at home. Patient does have underlying mild dementia. Denied any complaints of chest pain. No worsening shortness of breath. No fever no chills. Chest x-ray showed very low lung volumes limiting assessment of the lung bases and heart size. Prominent bibasilar pastries. Correlate for extensive atelectasis versus infectious aspiration pneumonitis. -proBNP is 7690. Echocardiogram for ejection fraction of 45-50% with basilar inferior wall hypokinesia. Patient continues to be in atrial fibrillation. Currently on anticoagulation with Eliquis. Currently on device no cough Zosyn. Patient was seen by psychiatric to evaluate for decision making capacity. Patient does have poor duration making capacity. We will need guardianship. 04 14 2018 Patient denied any complaints of chest pain or shortness of breath today. Saturating well on room air. Cultures showed no growth so far. Otherwise continued on current management and awaiting placement at this time. Continue with antibiotics in the form of Zosyn. Pulmonary is following. Patient is confused at times and has difficult decision making capacity. Current medications reviewed. Objective - Vital Signs Vital signs: Vital Signs Temp 98.6 F 04/15/18 15:28 Pulse 79 04/15/18 15:28 Resp 20 04/15/18 15:28 BP 116/67 04/15/18 15:28 Pulse Ox 95 04/15/18 15:28 Intake & Output 04/15/18 04/15/18 04/16/18 06:59 18:59 06:59 Intake Total 100 1190 Output Total 750 1300 Balance -650 -110 Weight 80.5 kg 80.5 kg Intake: Intake, IV Titration 100 180 Amount Piperacillin-Tazobactam 3 100 100 .375 gm In Sodium Chloride 0.9% 100 ml @ 25 mls/hr IVPB Q8H [facility] Rx#: [id number] Sodium Chloride 0.9% 1, 80 000 ml @ 20 mls/hr IV . Q24H [facility] Rx#:[id number] Oral 1010 Output: Urine 750 1300 Other: Voiding Method Indwelling Catheter Indwelling Catheter - Exam PHYSICAL EXAMINATION: Patient is lying in the bed comfortably, no acute distress, awake alert and oriented.. HEENT: Normocephalic. Neck is supple. Pupils reactive. Nostrils clear. Oral cavity is moist. Ears reveal no drainage. Neck reveals no JVD, carotid bruits, or thyromegaly. CHEST EXAMINATION: Trachea is central. Symmetrical expansion. Bibasilar coarse breath sounds and crackles. CARDIAC: Normal S1, S2 with no gallops. No murmurs ABDOMEN: Soft. Bowel sounds normal. No organomegaly. No abdominal bruits. Extremities: reveal no edema. No clubbing or cyanosis Neurologically awake, alert, oriented x2-3 with well-coordinated movements. No focal deficits noted Skin: No rash or skin lesions. Psychiatric: Coperative. Nonsuicidal Musculoskeletal: No joint swelling or deformity. Normal range of motion. - Labs CBC & Chem 7: 04/15/18 06:47 04/15/18 06:47 Labs: Abnormal Lab Results - Last 24 Hours (Table) 04/15/18 04/15/18 04/15/18 Range/Units 06:04 06:47 12:00 Chloride 109 H (98-107) mmol/L BUN 30 H (9-20) mg/dL Creatinine 1.67 H (0.66-1.25) mg/dL Glucose 241 H (74-99) mg/dL POC Glucose (mg/dL) 257 H 194 H (75-99) mg/dL Total Protein 5.2 L (6.3-8.2) g/dL Albumin 2.6 L (3.5-5.0) g/dL 04/15/18 04/15/18 Range/Units 17:25 20:36 Chloride (98-107) mmol/L BUN (9-20) mg/dL Creatinine (0.66-1.25) mg/dL Glucose (74-99) mg/dL POC Glucose (mg/dL) 232 H 208 H (75-99) mg/dL Total Protein (6.3-8.2) g/dL Albumin (3.5-5.0) g/dL Microbiology - Last 24 Hours (Table) 04/09/18 19:51 Blood Culture - Preliminary Blood No Growth after 120 hours Assessment and Plan Assessment: Altered mental status. Possible metabolic encephalopathy. Improved new-onset atrial fibrillation with rapid ventricular rate Acute CHF with mild reduced ejection fraction 45-50% Bibasilar pneumonia possible aspiration. Possible UTI. Urine culture showed no growth. Diabetes type 2 Hyperlipidemia Dementia elevated lactic acid level Elevated troponin level 0.085 indeterminate Acute on chronic disease stage III. Creatinine 1.62, metformin held at this time. Gait dysfunction Extensive dry skin on lower extremities CODE STATUS is DO NOT RESUSCITATE/DO NOT INTUBATE Plan: patient will be continued on antibiotics in the form of Zosyn. Continue with IV Solu-Medrol and breathing treatments. Patient was given a dose of IV Lasix. Currently saturating well on room air. Otherwise continue the current management. Pulmonary and cardiology is following. Further recommendations based on the clinical course. Prognosis is guarded. Time with Patient: Greater than 30
--- NOTE | 2018-04-15 23:48 | P.PN ---
Subjective Progress Note Date: 04/15/18 Principal diagnosis: Altered mental status, metabolic encephalopathy, A. fib with RVR, aspiration pneumonia Patient is a 77-year-old male was transferred from [facility] due to altered mental status and found on the floor incontinent of urine by his neighbor. Patient was found have A. fib with RVR, bibasilar pneumonia rhabdomyolysis and mild troponin elevation. Patient was seen by cardiology and pulmonary. 04/13/2018 Patient is currently sitting in a chair comfortably but seems to be not coherent. Patient says that he lives with his mother at home. Patient does have underlying mild dementia. Denied any complaints of chest pain. No worsening shortness of breath. No fever no chills. Chest x-ray showed very low lung volumes limiting assessment of the lung bases and heart size. Prominent bibasilar pastries. Correlate for extensive atelectasis versus infectious aspiration pneumonitis. -proBNP is 7690. Echocardiogram for ejection fraction of 45-50% with basilar inferior wall hypokinesia. Patient continues to be in atrial fibrillation. Currently on anticoagulation with Eliquis. Currently on device no cough Zosyn. Patient was seen by psychiatric to evaluate for decision making capacity. Patient does have poor duration making capacity. We will need guardianship. 04 14 2018 Patient denied any complaints of chest pain or shortness of breath today. Saturating well on room air. Cultures showed no growth so far. Otherwise continued on current management and awaiting placement at this time. Continue with antibiotics in the form of Zosyn. Pulmonary is following. Patient is confused at times and has difficult decision making capacity. 04/15/2018 Patient is awake alert. Currently saturating well on room air. No complains of chest pain or shortness of breath. No fever no chills. Continued on antibiotics and breathing treatments. Patient is requesting to go home. Patient lives by himself and due to poor living conditions, APS was involved in currently in the process of obtaining legal guardianship. Patient was seen by psychiatric and does have poor decision making capacity and is awaiting to be transferred to supervise living facility. Current medications reviewed. Objective - Vital Signs Vital signs: Vital Signs Temp 98.6 F 04/15/18 15:28 Pulse 79 04/15/18 15:28 Resp 20 04/15/18 15:28 BP 116/67 04/15/18 15:28 Pulse Ox 95 04/15/18 15:28 Intake & Output 04/15/18 04/15/18 04/16/18 06:59 18:59 06:59 Intake Total 100 1190 Output Total 750 1300 Balance -650 -110 Weight 80.5 kg 80.5 kg Intake: Intake, IV Titration 100 180 Amount Piperacillin-Tazobactam 3 100 100 .375 gm In Sodium Chloride 0.9% 100 ml @ 25 mls/hr IVPB Q8H [facility] Rx#: [id number] Sodium Chloride 0.9% 1, 80 000 ml @ 20 mls/hr IV . Q24H [facility] Rx#:[id number] Oral 1010 Output: Urine 750 1300 Other: Voiding Method Indwelling Catheter Indwelling Catheter - Exam PHYSICAL EXAMINATION: Patient is lying in the bed comfortably, no acute distress, awake alert and oriented.. HEENT: Normocephalic. Neck is supple. Pupils reactive. Nostrils clear. Oral cavity is moist. Ears reveal no drainage. Neck reveals no JVD, carotid bruits, or thyromegaly. CHEST EXAMINATION: Trachea is central. Symmetrical expansion. Bibasilar coarse breath sounds and crackles. CARDIAC: Normal S1, S2 with no gallops. No murmurs ABDOMEN: Soft. Bowel sounds normal. No organomegaly. No abdominal bruits. Extremities: reveal no edema. No clubbing or cyanosis Neurologically awake, alert, oriented x2-3 with well-coordinated movements. No focal deficits noted Skin: No rash or skin lesions. Psychiatric: Coperative. Nonsuicidal Musculoskeletal: No joint swelling or deformity. Normal range of motion. - Labs CBC & Chem 7: 04/15/18 06:47 04/15/18 06:47 Labs: Abnormal Lab Results - Last 24 Hours (Table) 04/15/18 04/15/18 04/15/18 Range/Units 06:04 06:47 12:00 Chloride 109 H (98-107) mmol/L BUN 30 H (9-20) mg/dL Creatinine 1.67 H (0.66-1.25) mg/dL Glucose 241 H (74-99) mg/dL POC Glucose (mg/dL) 257 H 194 H (75-99) mg/dL Total Protein 5.2 L (6.3-8.2) g/dL Albumin 2.6 L (3.5-5.0) g/dL 04/15/18 04/15/18 Range/Units 17:25 20:36 Chloride (98-107) mmol/L BUN (9-20) mg/dL Creatinine (0.66-1.25) mg/dL Glucose (74-99) mg/dL POC Glucose (mg/dL) 232 H 208 H (75-99) mg/dL Total Protein (6.3-8.2) g/dL Albumin (3.5-5.0) g/dL Microbiology - Last 24 Hours (Table) 04/09/18 19:51 Blood Culture - Preliminary Blood No Growth after 120 hours Assessment and Plan Assessment: Altered mental status. Possible metabolic encephalopathy. Improved new-onset atrial fibrillation with rapid ventricular rate Acute CHF with mild reduced ejection fraction 45-50% Bibasilar pneumonia possible aspiration. Possible UTI. Urine culture showed no growth. Diabetes type 2 Hyperlipidemia Dementia elevated lactic acid level Elevated troponin level 0.085 indeterminate Acute on chronic disease stage III. Creatinine 1.62, metformin held at this time. Gait dysfunction Extensive dry skin on lower extremities CODE STATUS is DO NOT RESUSCITATE/DO NOT INTUBATE Plan: patient will be continued on antibiotics in the form of Zosyn. Continue with IV Solu-Medrol and breathing treatments. Patient was given a dose of IV Lasix. Currently saturating well on room air. Otherwise continue the current management. Pulmonary and cardiology is following. Further recommendations based on the clinical course. Prognosis is guarded. Time with Patient: Greater than 30
[2018-04-16] MEDS: SODIUM CHLORIDE 0.9% 1,000 ML IV SCH (03:33)
[2018-04-16] MEDS: PIPERACILLIN-TAZOBACTAM 3.375 GM in SODIUM CHLORIDE 0.9% 100 ML IVPB SCH ×2 (05:15→11:40)
[2018-04-16 07:26] LABS: Glucose,Whole Blood 203 mg/dL (75-99)
[2018-04-16] MEDS: IPRATROPIUM-ALBUTEROL 3 ML NEB INHALATION SCH ×3 (07:33→19:18)
[2018-04-16] MEDS: SYMBICORT 160-4.5 MCG INHALER INHALATION SCH ×2 (07:33→19:18)
[2018-04-16] MEDS: PANTOPRAZOLE 40 MG TABLET PO SCH (07:59)
[2018-04-16] MEDS: THIAMINE 100 MG TAB PO SCH ×2 (07:59→17:27)
[2018-04-16] MEDS: APIXABAN 2.5 MG TABLET PO SCH ×2 (07:59→21:38)
[2018-04-16] MEDS: METOPROLOL TARTRATE 25 MG TAB PO SCH ×2 (07:59→21:38)
[2018-04-16] MEDS: INSULIN ASPART 100 UNIT/ML 1 ML 10 ML VIAL SQ SCH ×4 (07:59→21:39)
[2018-04-16] MEDS: MULTIVITAMINS, THERA 1 EACH TAB PO SCH (07:59)
[2018-04-16] MEDS: ASPIRIN 81 MG PO SCH (07:59)
[2018-04-16] MEDS: NICOTINE 14MG/24HR PATCH TRANSDERM SCH (07:59)
[2018-04-16] MEDS: SILVER sulfADIAZINE Cream 400 GM 1 APPLIC APPLIC TOPICAL SCH (08:00)
[2018-04-16 08:38] LABS: Basophils % (A) 1 %; Eosinophils # (A) 0.4 k/uL (0-0.7); Eosinophils % (A) 5 %; HGB 13.4 gm/dL (13.0-17.5); Lymphocytes # (A) 1.7 k/uL (1.0-4.8); Lymphocytes % (A) 23 %; MCH 29.6 pg (25.0-35.0); MCV 92.7 fL (80.0-100.0); Mean Platelet Volume 7.1; Monocytes # (A) 0.4 k/uL (0-1.0); Monocytes % (A) 5 %; Neutrophils # (A) 4.8 k/uL (1.3-7.7); Neutrophils % (A) 64 %; Platelet Count 283 k/uL (150-450); RBC 4.53 m/uL (4.30-5.90); RDW 14.4 % (11.5-15.5); WBC 7.5 k/uL (3.8-10.6)
[2018-04-16 09:00] LABS: Calcium 8.6 mg/dL (8.4-10.2); Potassium 4.6 mmol/L (3.5-5.1)
[2018-04-16 11:55] LABS: Glucose,Whole Blood 186 mg/dL (75-99)
[2018-04-16 17:08] LABS: Glucose,Whole Blood 207 mg/dL (75-99)
[2018-04-16 20:32] LABS: Glucose,Whole Blood 213 mg/dL (75-99)
[2018-04-16] MEDS: ATORVASTATIN 20 MG TAB PO SCH (21:38)
[2018-04-16] MEDS: AMOXIC-POT CLAV 875-125MG 1 EACH TAB PO SCH (21:38)
--- NOTE | 2018-04-16 22:08 | P.PN ---
Subjective Progress Note Date: 04/16/18 Principal diagnosis: Altered mental status, metabolic encephalopathy, A. fib with RVR, aspiration pneumonia Patient is a 77-year-old male was transferred from [facility] due to altered mental status and found on the floor incontinent of urine by his neighbor. Patient was found have A. fib with RVR, bibasilar pneumonia rhabdomyolysis and mild troponin elevation. Patient was seen by cardiology and pulmonary. 04/13/2018 Patient is currently sitting in a chair comfortably but seems to be not coherent. Patient says that he lives with his mother at home. Patient does have underlying mild dementia. Denied any complaints of chest pain. No worsening shortness of breath. No fever no chills. Chest x-ray showed very low lung volumes limiting assessment of the lung bases and heart size. Prominent bibasilar pastries. Correlate for extensive atelectasis versus infectious aspiration pneumonitis. -proBNP is 7690. Echocardiogram for ejection fraction of 45-50% with basilar inferior wall hypokinesia. Patient continues to be in atrial fibrillation. Currently on anticoagulation with Eliquis. Currently on device no cough Zosyn. Patient was seen by psychiatric to evaluate for decision making capacity. Patient does have poor duration making capacity. We will need guardianship. 04 14 2018 Patient denied any complaints of chest pain or shortness of breath today. Saturating well on room air. Cultures showed no growth so far. Otherwise continued on current management and awaiting placement at this time. Continue with antibiotics in the form of Zosyn. Pulmonary is following. Patient is confused at times and has difficult decision making capacity. 04/15/2018 Patient is awake alert. Currently saturating well on room air. No complains of chest pain or shortness of breath. No fever no chills. Continued on antibiotics and breathing treatments. Patient is requesting to go home. Patient lives by himself and due to poor living conditions, APS was involved in currently in the process of obtaining legal guardianship. Patient was seen by psychiatric and does have poor decision making capacity and is awaiting to be transferred to supervise living facility. 04/16/2018 Patient denied any complaints of chest pain or shortness of breath. Wants to be discharged home. No other acute overnight issues. Social work is following for placement to skilled less and facility. Current medications reviewed. Objective - Vital Signs Vital signs: Vital Signs Temp 97.6 F 04/16/18 15:00 Pulse 63 04/16/18 15:00 Resp 16 04/16/18 16:00 BP 115/68 04/16/18 15:00 Pulse Ox 93 L 04/16/18 15:00 Intake & Output 04/16/18 04/16/18 04/17/18 06:59 18:59 06:59 Output Total 1300 800 Balance -1300 -800 Weight 80 kg Output: Urine 1300 800 Uretheral (Patrick) 800 Other: Voiding Method Indwelling Catheter Toilet # Voids 2 # Bowel Movements 2 - Exam PHYSICAL EXAMINATION: Patient is lying in the bed comfortably, no acute distress, awake alert and oriented.. HEENT: Normocephalic. Neck is supple. Pupils reactive. Nostrils clear. Oral cavity is moist. Ears reveal no drainage. Neck reveals no JVD, carotid bruits, or thyromegaly. CHEST EXAMINATION: Trachea is central. Symmetrical expansion. Bibasilar coarse breath sounds and crackles. CARDIAC: Normal S1, S2 with no gallops. No murmurs ABDOMEN: Soft. Bowel sounds normal. No organomegaly. No abdominal bruits. Extremities: reveal no edema. No clubbing or cyanosis Neurologically awake, alert, oriented x2-3 with well-coordinated movements. No focal deficits noted Skin: No rash or skin lesions. Psychiatric: Coperative. Nonsuicidal Musculoskeletal: No joint swelling or deformity. Normal range of motion. - Labs CBC & Chem 7: 04/16/18 08:01 04/16/18 08:01 Labs: Abnormal Lab Results - Last 24 Hours (Table) 04/16/18 04/16/18 04/16/18 Range/Units 07:23 08:01 11:52 Chloride 108 H (98-107) mmol/L BUN 25 H (9-20) mg/dL Creatinine 1.52 H (0.66-1.25) mg/dL Glucose 210 H (74-99) mg/dL POC Glucose (mg/dL) 203 H 186 H (75-99) mg/dL 04/16/18 04/16/18 Range/Units 17:07 20:23 Chloride (98-107) mmol/L BUN (9-20) mg/dL Creatinine (0.66-1.25) mg/dL Glucose (74-99) mg/dL POC Glucose (mg/dL) 207 H 213 H (75-99) mg/dL Microbiology - Last 24 Hours (Table) 04/09/18 19:51 Blood Culture - Final Blood No Growth after 144 hours Assessment and Plan Assessment: Altered mental status. Possible metabolic encephalopathy. Improved new-onset atrial fibrillation with rapid ventricular rate. Started on anticoagulation. Acute CHF with mild reduced ejection fraction 45-50% Bibasilar pneumonia possible aspiration. Possible UTI. Urine culture showed no growth. Diabetes type 2 Hyperlipidemia Dementia elevated lactic acid level Elevated troponin level 0.085 indeterminate Acute on chronic disease stage III. Creatinine 1.62, metformin held at this time. Gait dysfunction Extensive dry skin on lower extremities CODE STATUS is DO NOT RESUSCITATE/DO NOT INTUBATE Plan: patient was on antibiotics in the form of Zosyn for possible aspiration. Changed to Augmentin now.. Continue with breathing treatments and prednisone.. Patient was given a dose of IV Lasix. Currently saturating well on room air. Otherwise continue the current management. Pulmonary and cardiology is following. Further recommendations based on the clinical course. Awaiting transfer to extended care facility. Prognosis is guarded. Time with Patient: Greater than 30
[2018-04-17] MEDS: IPRATROPIUM-ALBUTEROL 3 ML NEB INHALATION SCH ×3 (07:20→19:21)
[2018-04-17] MEDS: SYMBICORT 160-4.5 MCG INHALER INHALATION SCH ×2 (07:20→19:21)
[2018-04-17 07:31] LABS: Glucose,Whole Blood 238 mg/dL (75-99)
[2018-04-17] MEDS: AMOXIC-POT CLAV 875-125MG 1 EACH TAB PO SCH ×2 (08:21→20:46)
[2018-04-17] MEDS: APIXABAN 2.5 MG TABLET PO SCH ×2 (08:21→20:46)
[2018-04-17] MEDS: PANTOPRAZOLE 40 MG TABLET PO SCH (08:21)
[2018-04-17] MEDS: METOPROLOL TARTRATE 25 MG TAB PO SCH ×2 (08:21→20:46)
[2018-04-17] MEDS: INSULIN ASPART 100 UNIT/ML 1 ML 10 ML VIAL SQ SCH ×4 (08:21→20:46)
[2018-04-17] MEDS: ASPIRIN 81 MG PO SCH (08:21)
[2018-04-17 12:03] LABS: Glucose,Whole Blood 218 mg/dL (75-99)
[2018-04-17] MEDS: MULTIVITAMINS, THERA 1 EACH TAB PO SCH (12:04)
[2018-04-17] MEDS: THIAMINE 100 MG TAB PO SCH ×2 (12:04→17:07)
[2018-04-17] MEDS: SILVER sulfADIAZINE Cream 400 GM 1 APPLIC APPLIC TOPICAL SCH (12:05)
[2018-04-17 17:15] LABS: Glucose,Whole Blood 165 mg/dL (75-99)
[2018-04-17 20:39] LABS: Glucose,Whole Blood 218 mg/dL (75-99)
[2018-04-17] MEDS: ATORVASTATIN 20 MG TAB PO SCH (20:46)
--- NOTE | 2018-04-17 21:53 | P.PN ---
Subjective Progress Note Date: 04/17/18 Principal diagnosis: Altered mental status, metabolic encephalopathy, A. fib with RVR, aspiration pneumonia Patient is a 77-year-old male was transferred from [facility] due to altered mental status and found on the floor incontinent of urine by his neighbor. Patient was found have A. fib with RVR, bibasilar pneumonia rhabdomyolysis and mild troponin elevation. Patient was seen by cardiology and pulmonary. 04/13/2018 Patient is currently sitting in a chair comfortably but seems to be not coherent. Patient says that he lives with his mother at home. Patient does have underlying mild dementia. Denied any complaints of chest pain. No worsening shortness of breath. No fever no chills. Chest x-ray showed very low lung volumes limiting assessment of the lung bases and heart size. Prominent bibasilar pastries. Correlate for extensive atelectasis versus infectious aspiration pneumonitis. -proBNP is 7690. Echocardiogram for ejection fraction of 45-50% with basilar inferior wall hypokinesia. Patient continues to be in atrial fibrillation. Currently on anticoagulation with Eliquis. Currently on device no cough Zosyn. Patient was seen by psychiatric to evaluate for decision making capacity. Patient does have poor duration making capacity. We will need guardianship. 04 14 2018 Patient denied any complaints of chest pain or shortness of breath today. Saturating well on room air. Cultures showed no growth so far. Otherwise continued on current management and awaiting placement at this time. Continue with antibiotics in the form of Zosyn. Pulmonary is following. Patient is confused at times and has difficult decision making capacity. 04/15/2018 Patient is awake alert. Currently saturating well on room air. No complains of chest pain or shortness of breath. No fever no chills. Continued on antibiotics and breathing treatments. Patient is requesting to go home. Patient lives by himself and due to poor living conditions, APS was involved in currently in the process of obtaining legal guardianship. Patient was seen by psychiatric and does have poor decision making capacity and is awaiting to be transferred to supervise living facility. 04/16/2018 Patient denied any complaints of chest pain or shortness of breath. Wants to be discharged home. No other acute overnight issues. Social work is following for placement to skilled care and facility. 04/09/2089 Patient denied any new complaints today. Awaiting placement to retirement home facility. Current medications reviewed. Objective - Vital Signs Vital signs: Vital Signs Temp 98.5 F 04/17/18 07:00 Pulse 66 04/17/18 14:03 Resp 18 04/17/18 07:00 BP 122/75 04/17/18 07:00 Pulse Ox 93 L 04/17/18 07:22 Intake & Output 04/16/18 04/17/18 04/17/18 18:59 06:59 18:59 Intake Total 350 Output Total 800 350 Balance -800 0 Intake: Oral 350 Output: Urine 800 350 Uretheral (Patrick) 800 Other: Voiding Method Toilet Toilet Toilet # Voids 2 1 # Bowel Movements 2 - Exam PHYSICAL EXAMINATION: Patient is lying in the bed comfortably, no acute distress, awake alert and oriented.. HEENT: Normocephalic. Neck is supple. Pupils reactive. Nostrils clear. Oral cavity is moist. Ears reveal no drainage. Neck reveals no JVD, carotid bruits, or thyromegaly. CHEST EXAMINATION: Trachea is central. Symmetrical expansion. Bibasilar coarse breath sounds and crackles. CARDIAC: Normal S1, S2 with no gallops. No murmurs ABDOMEN: Soft. Bowel sounds normal. No organomegaly. No abdominal bruits. Extremities: reveal no edema. No clubbing or cyanosis Neurologically awake, alert, oriented x2-3 with well-coordinated movements. No focal deficits noted Skin: No rash or skin lesions. Psychiatric: Coperative. Nonsuicidal Musculoskeletal: No joint swelling or deformity. Normal range of motion. - Labs CBC & Chem 7: 04/16/18 08:01 04/16/18 08:01 Labs: Abnormal Lab Results - Last 24 Hours (Table) 04/16/18 04/16/18 04/17/18 Range/Units 17:07 20:23 07:20 POC Glucose (mg/dL) 207 H 213 H 238 H (75-99) mg/dL 04/17/18 Range/Units 11:54 POC Glucose (mg/dL) 218 H (75-99) mg/dL Assessment and Plan Assessment: Altered mental status. Possible metabolic encephalopathy. Improved new-onset atrial fibrillation with rapid ventricular rate. Started on anticoagulation. Acute CHF with mild reduced ejection fraction 45-50% Bibasilar pneumonia possible aspiration. Possible UTI. Urine culture showed no growth. Diabetes type 2 Hyperlipidemia Dementia elevated lactic acid level Elevated troponin level 0.085 indeterminate Acute on chronic disease stage III. Creatinine 1.62, metformin held at this time. Gait dysfunction Extensive dry skin on lower extremities CODE STATUS is DO NOT RESUSCITATE/DO NOT INTUBATE Plan: patient was on antibiotics in the form of Zosyn for possible aspiration. Changed to Augmentin now.. Continue with breathing treatments and prednisone.. Patient was given a dose of IV Lasix. Currently saturating well on room air. Otherwise continue the current management. Pulmonary and cardiology is following. Further recommendations based on the clinical course. Awaiting transfer to extended care facility. Prognosis is guarded. Time with Patient: Greater than 30
[2018-04-18] MEDS: SYMBICORT 160-4.5 MCG INHALER INHALATION SCH ×2 (07:18→20:35)
[2018-04-18] MEDS: IPRATROPIUM-ALBUTEROL 3 ML NEB INHALATION SCH ×3 (07:19→20:35)
[2018-04-18 07:39] LABS: Glucose,Whole Blood 215 mg/dL (75-99)
[2018-04-18] MEDS: INSULIN ASPART 100 UNIT/ML 1 ML 10 ML VIAL SQ SCH ×4 (07:50→21:03)
[2018-04-18] MEDS: PANTOPRAZOLE 40 MG TABLET PO SCH (07:50)
[2018-04-18] MEDS: ASPIRIN 81 MG PO SCH (07:51)
[2018-04-18] MEDS: APIXABAN 2.5 MG TABLET PO SCH ×2 (07:51→21:02)
[2018-04-18] MEDS: SILVER sulfADIAZINE Cream 400 GM 1 APPLIC APPLIC TOPICAL SCH (07:51)
[2018-04-18] MEDS: AMOXIC-POT CLAV 875-125MG 1 EACH TAB PO SCH ×2 (07:51→21:02)
[2018-04-18] MEDS: METOPROLOL TARTRATE 25 MG TAB PO SCH ×2 (07:51→21:02)
[2018-04-18 11:27] LABS: Glucose,Whole Blood 246 mg/dL (75-99)
[2018-04-18] MEDS: THIAMINE 100 MG TAB PO SCH ×2 (12:51→17:02)
[2018-04-18] MEDS: MULTIVITAMINS, THERA 1 EACH TAB PO SCH (12:51)
[2018-04-18 17:26] LABS: Glucose,Whole Blood 228 mg/dL (75-99)
[2018-04-18 20:43] LABS: Glucose,Whole Blood 246 mg/dL (75-99)
--- NOTE | 2018-04-18 20:48 | P.PN ---
Subjective Progress Note Date: 04/18/18 Principal diagnosis: Altered mental status, metabolic encephalopathy, A. fib with RVR, aspiration pneumonia Patient is a 77-year-old male was transferred from [facility] due to altered mental status and found on the floor incontinent of urine by his neighbor. Patient was found have A. fib with RVR, bibasilar pneumonia rhabdomyolysis and mild troponin elevation. Patient was seen by cardiology and pulmonary. 04/13/2018 Patient is currently sitting in a chair comfortably but seems to be not coherent. Patient says that he lives with his mother at home. Patient does have underlying mild dementia. Denied any complaints of chest pain. No worsening shortness of breath. No fever no chills. Chest x-ray showed very low lung volumes limiting assessment of the lung bases and heart size. Prominent bibasilar pastries. Correlate for extensive atelectasis versus infectious aspiration pneumonitis. -proBNP is 7690. Echocardiogram for ejection fraction of 45-50% with basilar inferior wall hypokinesia. Patient continues to be in atrial fibrillation. Currently on anticoagulation with Eliquis. Currently on device no cough Zosyn. Patient was seen by psychiatric to evaluate for decision making capacity. Patient does have poor duration making capacity. We will need guardianship. 04 14 2018 Patient denied any complaints of chest pain or shortness of breath today. Saturating well on room air. Cultures showed no growth so far. Otherwise continued on current management and awaiting placement at this time. Continue with antibiotics in the form of Zosyn. Pulmonary is following. Patient is confused at times and has difficult decision making capacity. 04/15/2018 Patient is awake alert. Currently saturating well on room air. No complains of chest pain or shortness of breath. No fever no chills. Continued on antibiotics and breathing treatments. Patient is requesting to go home. Patient lives by himself and due to poor living conditions, APS was involved in currently in the process of obtaining legal guardianship. Patient was seen by psychiatric and does have poor decision making capacity and is awaiting to be transferred to supervise living facility. 04/16/2018 Patient denied any complaints of chest pain or shortness of breath. Wants to be discharged home. No other acute overnight issues. Social work is following for placement to skilled care and facility. 04/17/2018 Patient denied any new complaints today. Awaiting placement to longterm home facility. 04 18 2018 Patient denied any complaints of chest pain or shortness of breath. No fever no chills. Patient is being continued on antibiotics the form of Augmentin until 04/21/2018 Patient is currently to be transferred to longterm care facility. Current medications reviewed. Objective - Vital Signs Vital signs: Vital Signs Temp 98.7 F 04/18/18 15:00 Pulse 70 04/18/18 20:37 Resp 16 04/18/18 15:00 BP 127/88 04/18/18 15:00 Pulse Ox 98 04/18/18 15:00 Intake & Output 04/18/18 04/18/18 04/19/18 06:59 18:59 06:59 Intake Total 600 200 Output Total 1200 Balance -600 200 Weight 80 kg Intake: Oral 600 200 Output: Urine 1200 Other: Voiding Method Toilet Toilet Diaper Incontinent # Voids 3 1 # Bowel Movements 1 - Exam PHYSICAL EXAMINATION: Patient is lying in the bed comfortably, no acute distress, awake alert and oriented.. HEENT: Normocephalic. Neck is supple. Pupils reactive. Nostrils clear. Oral cavity is moist. Ears reveal no drainage. Neck reveals no JVD, carotid bruits, or thyromegaly. CHEST EXAMINATION: Trachea is central. Symmetrical expansion. Bibasilar coarse breath sounds and crackles. CARDIAC: Normal S1, S2 with no gallops. No murmurs ABDOMEN: Soft. Bowel sounds normal. No organomegaly. No abdominal bruits. Extremities: reveal no edema. No clubbing or cyanosis Neurologically awake, alert, oriented x2-3 with well-coordinated movements. No focal deficits noted Skin: No rash or skin lesions. Psychiatric: Coperative. Nonsuicidal Musculoskeletal: No joint swelling or deformity. Normal range of motion. - Labs CBC & Chem 7: 04/16/18 08:01 04/16/18 08:01 Labs: Abnormal Lab Results - Last 24 Hours (Table) 04/18/18 04/18/18 04/18/18 Range/Units 07:27 11:25 17:19 POC Glucose (mg/dL) 215 H 246 H 228 H (75-99) mg/dL 04/18/18 Range/Units 20:42 POC Glucose (mg/dL) 246 H (75-99) mg/dL Assessment and Plan Assessment: Altered mental status. Possible metabolic encephalopathy. Improved new-onset atrial fibrillation with rapid ventricular rate. Started on anticoagulation. Acute CHF with mild reduced ejection fraction 45-50% Bibasilar pneumonia possible aspiration. Possible UTI. Urine culture showed no growth. Diabetes type 2 Hyperlipidemia Dementia elevated lactic acid level Elevated troponin level 0.085 indeterminate Acute on chronic disease stage III. Creatinine 1.62, metformin held at this time. Gait dysfunction Extensive dry skin on lower extremities CODE STATUS is DO NOT RESUSCITATE/DO NOT INTUBATE Plan: patient was on antibiotics in the form of Zosyn for possible aspiration. Changed to Augmentin now.. Continue with breathing treatments. Patient was also on prednisone before. Patient was given a dose of IV Lasix. Currently saturating well on room air. Otherwise continue the current management. Pulmonary and cardiology is following. Further recommendations based on the clinical course. Awaiting transfer to extended care facility. Prognosis is guarded.
[2018-04-18] MEDS: ATORVASTATIN 20 MG TAB PO SCH (21:02)
[2018-04-18 22:44] VITALS: TEMP 97.5
[2018-04-19 06:07] VITALS: BP 128/74
[2018-04-19 07:22] LABS: Glucose,Whole Blood 232 mg/dL (75-99)
[2018-04-19] MEDS: IPRATROPIUM-ALBUTEROL 3 ML NEB INHALATION SCH ×2 (07:39→15:53)
[2018-04-19] MEDS: SYMBICORT 160-4.5 MCG INHALER INHALATION SCH (07:39)
[2018-04-19] MEDS: ASPIRIN 81 MG PO SCH (08:04)
[2018-04-19] MEDS: MULTIVITAMINS, THERA 1 EACH TAB PO SCH (08:04)
[2018-04-19] MEDS: PANTOPRAZOLE 40 MG TABLET PO SCH (08:04)
[2018-04-19] MEDS: APIXABAN 2.5 MG TABLET PO SCH (08:04)
[2018-04-19] MEDS: METOPROLOL TARTRATE 25 MG TAB PO SCH (08:04)
[2018-04-19] MEDS: THIAMINE 100 MG TAB PO SCH (08:04)
[2018-04-19] MEDS: INSULIN ASPART 100 UNIT/ML 1 ML 10 ML VIAL SQ SCH ×2 (08:05→13:31)
[2018-04-19] MEDS: AMOXIC-POT CLAV 875-125MG 1 EACH TAB PO SCH (08:05)
[2018-04-19] MEDS: SILVER sulfADIAZINE Cream 400 GM 1 APPLIC APPLIC TOPICAL SCH (08:07)
[2018-04-19 08:14] VITALS: RESP 16
[2018-04-19 08:15] LABS: Basophils # (A) 0.1 k/uL (0-0.2); Basophils % (A) 1 %; Eosinophils # (A) 0.4 k/uL (0-0.7); Eosinophils % (A) 4 %; HCT 42.8 % (39.0-53.0); HGB 13.9 gm/dL (13.0-17.5); Lymphocytes # (A) 1.4 k/uL (1.0-4.8); Lymphocytes % (A) 16 %; MCHC 32.4 g/dL (31.0-37.0); MCV 92.8 fL (80.0-100.0); Mean Platelet Volume 7.3; Monocytes # (A) 0.5 k/uL (0-1.0); Monocytes % (A) 5 %; Neutrophils # (A) 6.5 k/uL (1.3-7.7); Neutrophils % (A) 73 %; Platelet Count 316 k/uL (150-450); RBC 4.61 m/uL (4.30-5.90); RDW 14.5 % (11.5-15.5); WBC 8.9 k/uL (3.8-10.6)
[2018-04-19 08:36] LABS: Potassium 4.9 mmol/L (3.5-5.1)
[2018-04-19 12:38] LABS: Glucose,Whole Blood 202 mg/dL (75-99)
--- NOTE | 2018-04-19 13:16 | P.DS ---
Providers Date of admission: 04/09/18 19:48 Attending physician: Pantera Perez Consults: 04/09/18 23:20 Consult Physician Routine Consulting Provider: Jonny Santizo Consult Reason/Comments: copd Do you want consulting provider notified?: Yes 04/10/18 11:22 Consult Physician Routine Consulting Provider: [facility] Consult Reason/Comments: + trops, a-fib rvr Do you want consulting provider notified?: Yes 04/13/18 10:35 Consult Physician Urgent Consulting Provider: Russell Mendes Consult Reason/Comments: Suicide ideations. Do you want consulting provider notified?: Yes Primary care physician: [facility] Hospital Course: Diagnoses: Altered mental status. Possible metabolic encephalopathy. Improved new-onset atrial fibrillation with rapid ventricular rate. one eliquis Acute CHF with mild reduced ejection fraction 45-50% Bibasilar pneumonia possible aspiration. Possible UTI. Urine culture showed no growth. Diabetes type 2 Hyperlipidemia Dementia Elevated troponin level 0.085 indeterminate Acute on chronic disease stage III. Creatinine 1.62, metformin held at this time. Gait dysfunction Extensive dry skin on lower extremities CODE STATUS is DO NOT RESUSCITATE/DO NOT INTUBATE hospital course: Patient is a 77-year-old male was transferred from [facility] due to altered mental status and found on the floor incontinent of urine by his neighbor. Patient was found have A. fib with RVR, bibasilar pneumonia rhabdomyolysis and mild troponin elevation. Patient was seen by cardiology and pulmonary. Patient has been treated with Zosyn for his bilateral pneumonia, and switched onto Augmentin. No more fever and his leukocytoses are within normal limits. Heart rate has been controlled on Lopressor and currently is 72 bpm. He's on Eliquis with renal dosing. Patient needed guardianship for his dementia and mental illness has been evaluated by psychiatrist. Patient denies suicidal ideation or homicidal ideation. Patient showed interval improvement and return to his baseline. Patient has been evaluated by physical therapy and recommended subacute rehab. Patient denies chest pain or dyspnea. No change in urine or bowel habits. No nausea vomiting or abdominal pain. No fever Patient was cleared for discharge by pulmonary, psychiatry and cosmetology instructor team. Patient himself feels ready to be discharged today. pt will be discharged on metoprolol , aspirin, lipitor and eliquis Patient was found stable and can be discharged to [facility] and guarded prognosis, however he needs follow-up as an outpatient. Gen: patient is a AAOx3, no distress CVS: S1-S2, RRR, no murmur Lungs: B/L CTA, no wheezing Abdomen: soft, no distention, no tenderness, positive bowel sounds Extremity: no leg edema or induration Time spent more than 35 minutes Patient Condition at Discharge: Serious Plan - Discharge Summary New Discharge Prescriptions: New Albuterol Inhaler [Ventolin Hfa Inhaler] 2 puff INHALATION RT-Q6H #1 inhaler Amoxicillin/Potassium Clav [Augmentin 875-125 Tablet] 1 tab PO Q12HR #10 tab Apixaban [Eliquis] 2.5 mg PO BID #60 tablet Aspirin 81 mg PO DAILY #30 chew Budesonide-Formot 160-4.5 Mcg [Symbicort 160-4.5 Mcg Inhaler] 2 puff INHALATION RT-BID #1 puff metFORMIN HCL [Glucophage] 500 mg PO BID-W/MEALS #60 tab Metoprolol Tartrate [Lopressor] 25 mg PO BID #60 tab Multivitamins, Thera [Multivitamin (formulary)] 1 each PO DAILY@1200 #30 tab Thiamine [Vitamin B-1] 100 mg PO DAILY #30 tab Amoxic-Pot Clav 875-125Mg [Augmentin 875-125] 1 each PO Q12HR 3 Days #6 tab Insulin Aspart [NovoLOG (formulary)] 0 unit SQ ACHS vial Pantoprazole [Protonix] 40 mg PO AC-BRKFST 21 Days tablet. Continue Atorvastatin [Lipitor] 40 mg PO DAILY Discharge Medication List Atorvastatin [Lipitor] 40 mg PO DAILY 02/06/17 [History] Albuterol Inhaler [Ventolin Hfa Inhaler] 2 puff INHALATION RT-Q6H #1 inhaler 10/22 [Rx] Amoxicillin/Potassium Clav [Augmentin 875-125 Tablet] 1 tab PO Q12HR #10 tab 10/22 [Rx] Apixaban [Eliquis] 2.5 mg PO BID #60 tablet 04/12/18 [Rx] Aspirin 81 mg PO DAILY #30 chew 04/12/18 [Rx] Budesonide-Formot 160-4.5 Mcg [Symbicort 160-4.5 Mcg Inhaler] 2 puff INHALATION RT-BID #1 puff 04/12/18 [Rx] Metoprolol Tartrate [Lopressor] 25 mg PO BID #60 tab 04/12/18 [Rx] Multivitamins, Thera [Multivitamin (formulary)] 1 each PO DAILY@1200 #30 tab 10/22 [Rx] Thiamine [Vitamin B-1] 100 mg PO DAILY #30 tab 04/12/18 [Rx] metFORMIN HCL [Glucophage] 500 mg PO BID-W/MEALS #60 tab 04/12/18 [Rx] Amoxic-Pot Clav 875-125Mg [Augmentin 875-125] 1 each PO Q12HR 3 Days #6 tab [Rx] Insulin Aspart [NovoLOG (formulary)] 0 unit SQ ACHS vial 04/19/18 [Rx] Pantoprazole [Protonix] 40 mg PO AC-BRKFST 21 Days tablet. 04/19/18 [Rx] Follow up Appointment(s)/Referral(s): [facility], [NON-STAFF] - 1 Week [facility] [Primary Care Provider] - 1-2 days Ambulatory/Diagnostic Orders: Complete Blood Count w/diff [LAB.AMB] Location: None Selected Patient Instructions/Handouts: Pneumonia (DC) Activity/Diet/Wound Care/Special Instructions: Nephew(Isaiah Vasquez) looking into guardianship. Diabetic, cardiac diet. Up with assist, fall precautions, uses walker. Discharge Disposition: TRANSFER TO SNF/ECF
[2018-04-19 16:05] VITALS: PULSE 70
== END 2018-04-19 17:37 | DRG 871 ==
LOC: EC 17:45 → 3SCARD 19:48 → 4MS4W 04-15 18:53 → UNDODISIN 04-19 17:11
PROVIDERS: ADMIT Internal Medicine; ATTEND Internal Medicine
DX: A41.9 Sepsis, unspecified organism (principal); G93.41 Metabolic encephalopathy; J69.0 Pneumonitis due to inhalation of food and vomit; I50.23 Acute on chronic systolic (congestive) heart failure; M62.82 Rhabdomyolysis; E87.2 Acidosis; G91.9 Hydrocephalus, unspecified; N17.9 Acute kidney failure, unspecified; R45.851 Suicidal ideations; I13.0 Hypertensive heart and chronic kidney disease with heart failure and stage 1 through stage 4 chronic kidney disease, or unspecified chronic kidney disease; R65.20 Severe sepsis without septic shock; Z66 Do not resuscitate; E86.0 Dehydration; E11.22 Type 2 diabetes mellitus with diabetic chronic kidney disease; N18.3 Chronic kidney disease, stage 3 (moderate); F03.90 Unspecified dementia, unspecified severity, without behavioral disturbance, psychotic disturbance, mood disturbance, and anxiety; I49.3 Ventricular premature depolarization; E78.5 Hyperlipidemia, unspecified; R26.9 Unspecified abnormalities of gait and mobility; R32 Unspecified urinary incontinence; R77.8 Other specified abnormalities of plasma proteins; H91.90 Unspecified hearing loss, unspecified ear; Z79.84 Long term (current) use of oral hypoglycemic drugs; Z79.899 Other long term (current) drug therapy; Z82.0 Family history of epilepsy and other diseases of the nervous system; I48.91 Unspecified atrial fibrillation
CPT/HCPCS: 70450; 71045; 71046; 74230; 80048; 80053; 80061; 80306; 80320; 81001; 82550; 83605; 83735; 83880; 84484; 85025; 85610; 85730; 87040; 87086; 87502; 93306; 94640; 94760; 99285

== ENCOUNTER 2020-01-27 03:47 | Emergency (ER) | payer MEDICARE ==
[2020-01-27 03:53] VITALS: RESP 18; TEMP 98.1
--- NOTE | 2020-01-27 04:30 | CT ---
EXAMINATION TYPE: CT brain doreen powell con DATE OF EXAM: 01/27/2020 COMPARISON: CT brain 04/10/2018 HISTORY: Fall. Pain. CT DLP: mGycm Automated exposure control for dose reduction was used. There is diffuse cerebral atrophy. There is no mass effect nor midline shift. There is no sign of int racranial hemorrhage. Calvarium is intact. There is large external occipital protuberance. There is mild 3 mm anterior subluxation of C2 in relation to C3. Facet joints are intact. There is de generative disc space narrowing from C3 to C7 with spurring of the endplates. There is no evidence of a fracture. Temporal bones are intact. Skull base is intact. IMPRESSION: Multilevel spondylotic changes. Degenerative first-degree C2-3 spondylolisthesis. No fracture. Cerebral atrophy. No acute intracranial abnormality. No change.
--- NOTE | 2020-01-27 04:36 | ED ---
Fall HPI - General Chief Complaint: Fall Stated Complaint: Fall Time Seen by Provider: 01/27/20 03:55 Source: patient, EMS Mode of arrival: EMS - History of Present Illness Initial Comments: This patient is an 79-year-old man who is here for evaluation after he had a fall. The patient was attempting to go from chair to bed when he slipped falling and striking head against furniture. The patient does take a requests and therefore I was concerned about injury. He is denying neurologic symptoms. No neck pain. Patient states only very mild headache. No neurologic symptoms MD Complaint: fall Onset/Timin -: hour(s) Fall From: out of bed When Fall Occurred: [address] Fall Occurred: home Loss of Consciousness: none Prolonged Down Time?: no Symptoms Prior to Fall: none Location: head Severity: mild Context: tripped/slipped Associated Symptoms: headache - Related Data Home Medications Medication Instructions Recorded Confirmed Atorvastatin [Lipitor] 40 mg PO DAILY 02/06/17 04/09/18 Previous Rx's Medication Instructions Recorded Albuterol Inhaler (Mhu) [Ventolin 2 puff INHALATION RT-Q6H #1 inhaler 04/12/18 Hfa Inhaler (Mhu)] Amoxicillin/Potassium Clav 1 tab PO Q12HR #10 tab 04/12/18 [Augmentin 875-125 Tablet] Apixaban [Eliquis] 2.5 mg PO BID #60 tablet 04/12/18 Aspirin 81 mg PO DAILY #30 chew 04/12/18 Budesonide-Formot 160-4.5 Mcg 2 puff INHALATION RT-BID #1 puff 04/12/18 [Symbicort 160-4.5 Mcg Inhaler] Metoprolol Tartrate [Lopressor] 25 mg PO BID #60 tab 04/12/18 Multivitamins, Thera [Multivitamin 1 each PO DAILY@1200 #30 tab 04/12/18 (formulary)] Thiamine [Vitamin B-1] 100 mg PO DAILY #30 tab 04/12/18 metFORMIN HCL [Glucophage] 500 mg PO BID-W/MEALS #60 tab 04/12/18 Amoxic-Pot Clav 875-125Mg 1 each PO Q12HR 3 Days #6 tab 04/19/18 [Augmentin 875-125] INSULIN ASPART (NovoLOG) [NovoLOG 0 unit SQ ACHS vial 04/19/18 (formulary)] Pantoprazole [Protonix] 40 mg PO AC-BRKFST 21 Days 04/19/18 tablet. Allergies Allergy/AdvReac Type Severity Reaction Status Date / Time No Known Allergies Allergy Verified 04/09/18 21:36 Review of Systems ROS Statement: Those systems with pertinent positive or pertinent negative responses have been documented in the HPI. ROS Other: All systems not noted in ROS Statement are negative. Constitutional: Denies: fever, chills, weakness Respiratory: Denies: cough, dyspnea Cardiovascular: Denies: chest pain, palpitations, edema, syncope Gastrointestinal: Denies: abdominal pain, vomiting, diarrhea Musculoskeletal: Denies: back pain Skin: Denies: rash Neurological: Reports: as per HPI, headache. Denies: weakness, numbness Past Medical History Past Medical History: Diabetes Mellitus, Hypertension History of Any Multi-Drug Resistant Organisms: None Reported Past Surgical History: No Surgical Hx Reported Past Psychological History: No Psychological Hx Reported Smoking Status: Never smoker Past Alcohol Use History: None Reported Past Drug Use History: None Reported - Past Family History Father Family Medical History: Musculoskeletal Disorder Additional Family Medical History / Comment(s): MS General Exam Limitations: no limitations General appearance: alert, in no apparent distress Head exam: Present: atraumatic, normocephalic Eye exam: Present: normal appearance, PERRL, EOMI. Absent: scleral icterus, conjunctival injection ENT exam: Present: normal oropharynx Neck exam: Present: normal inspection, full ROM. Absent: tenderness Respiratory exam: Present: normal lung sounds bilaterally. Absent: respiratory distress, wheezes, rales, rhonchi, stridor, chest wall tenderness Cardiovascular Exam: Present: regular rate, normal rhythm, normal heart sounds. Absent: systolic murmur, diastolic murmur, rubs, gallop GI/Abdominal exam: Present: soft. Absent: distended, tenderness, guarding, rebound, rigid Extremities exam: Present: normal inspection, normal capillary refill. Absent: pedal edema, calf tenderness Back exam: Present: normal inspection. Absent: CVA tenderness (R), CVA tenderness (L), vertebral tenderness Neurological exam: Present: alert, CN II-XII intact. Absent: motor sensory deficit Skin exam: Present: warm, dry, normal color, abrasion (Scalp) Course Vital Signs 01/27/20 01/27/20 03:49 06:28 Temperature 98.1 F Pulse Rate 78 69 Respiratory 18 18 Rate Blood Pressure 106/61 110/64 O2 Sat by Pulse 96 97 Oximetry Disposition Clinical Impression: Fall, Head injury Disposition: HOME SELF-CARE Condition: Good Instructions (If sedation given, give patient instructions): Fall Prevention for Older Adults (ED), Head Injury (ED) Is patient prescribed a controlled substance at d/c from ED?: No Referrals: Cruz Giraldo MD [Primary Care Provider] - 1-2 days
[2020-01-27 06:29] VITALS: BP 110/64; PULSE 69
== END 2020-01-27 06:29 | disposition home or self-care (01) ==
LOC: EC 03:47
DX: S09.90XA Unspecified injury of head, initial encounter (principal); W06.XXXA Fall from bed, initial encounter; Y93.89 Activity, other specified
CPT/HCPCS: 70450; 72125; 99284